=== PATIENT | male | born 1935 | race Caucasian/White ===

== ENCOUNTER 2016-07-23 14:11 | Inpatient (IN) | payer OTHER ==
[~2016-07-23] VITALS: Ht 177.8 cm; Wt 92.5 kg
--- NOTE | ~2016-07-23 | D ---
[facility] [place] [address] DISCHARGE SUMMARY Name: CHERYL VILLALTA Room #: 460-P [facility] IN M.R.#: [id number] Admission: 07/23/16 Attend Phys: Rosanna Melo Discharge: 07/27/16 Date of : 34 Report #: [id number] THIS REPORT FOR: //name// CC: Phill Monaco DATE OF SERVICE: 07/27/2016 FINAL DIAGNOSES: 1. Clostridium difficile colitis. 2. Peripheral artery disease. 3. Chronic kidney disease, stage 3. HOSPITAL COURSE: The patient was admitted with nausea, vomiting and diarrhea. Basic studies were unremarkable. His creatinine was essentially near baseline around 1.6. The lab data were unremarkable. Dr. Hester saw him in consultation. Stool studies were obtained and they were positive for Clostridium difficile. He was started on vancomycin. His nausea resolved. His stools were forming and he is eating a regular diet. PHYSICAL EXAMINATION: On the day of discharge: GENERAL: He is awake and alert with stable vital signs. LUNGS: Clear. HEART: Regular. ABDOMEN: Soft, normoactive bowel sounds, no tenderness. EXTREMITIES: Showed no edema. DISPOSITION: He will be discharged to home with diet and activity as tolerated, resume all home medications; he will take vancomycin 125 mg q.i.d. for 2 weeks. Follow up with Dr. Monaco in [address] Hester in 4 weeks to consider endoscopy at that point. <ELECTRONICALLY SIGNED> By: Aris De Santiago MD 07/28/16 1240 0845 1952 Aris De Santiago MD /nt
--- NOTE | ~2016-07-23 | EKG ---
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 : 1935 Requested By: Phill Monaco Order Number: [id number] MD: Karlo Hunter Measurements Intervals [place] Rate: 64 P: -11 VT: 168 QRS: -43 QRSD: 148 T: 5 QT: 437 QTc: 451 Interpretive Statements Sinus rhythm RBBB and LAFB Compared to ECG 04/04/2016 10:40:31 Left anterior fascicular block now present Electronically Signed On 07-24-2016 7:34:52 CDT by Karlo Hunter [email or web address] <ELECTRONICALLY SIGNED> By: Karlo Hunter MD, [facility] 07/24/16 0734 183 183 Karlo Hunter MD, [facility] /EPI
--- NOTE | ~2016-07-23 | H ---
[facility] [place] [address] HISTORY AND PHYSICAL Name: CHERYL VILLALTA Room #: 460-P ADM IN M.R.#: [id number] Admission: 07/23/16 Attend Phys: Rosanna Melo Discharge: Date of : 34 Report #: [id number] THIS REPORT FOR: //name// CC: Phill Monaco DATE OF SERVICE: 07/23/2016 CHIEF COMPLAINT: Chronic diarrhea, nausea and vomiting. HISTORY OF PRESENT ILLNESS: The patient is an 81-year-old gentleman who was admitted to the hospital from the office for evaluation of nausea and vomiting. He has a longstanding history of chronic diarrhea that he controls with cholestyramine and Lomotil on a daily basis. It developed after his colonoscopy several years ago. He said generally that has been under control, but in the last 2 days, he thought he has had a little more diarrhea than usual. Then on Thursday of this week, he began feeling ill or "sick" at work and was taken home by his family. Upon arriving home, he immediately vomited just bile contents and he said there was no bleeding. Since then, he has felt weak and just some abdominal discomfort. He really has not been eating and drinking in the last 2 days and therefore was admitted yesterday from the office. PAST MEDICAL HISTORY: Diabetes type 2, GERD, peripheral artery disease with prior stents, diverticulosis, obstructive sleep apnea, coronary artery disease with prior cardiac stents. Apparently, he had a colonoscopy and EGD and CT of the abdomen in 2013. SURGICAL HISTORY: He has had prostatectomy, cholecystectomy, abdominal aortic aneurysm repair April of this year. FAMILY HISTORY: Unknown. SOCIAL HISTORY: He is a remote smoker, none currently. ALLERGIES: ACTOS. MEDICATIONS: Cholestyramine 1 packet t.i.d., vitamins, probiotic, Plavix 75 mg, fish oil, fenofibrate 160 mg, Carafate 1 gram b.i.d., metoprolol 50 mg half tab, aspirin 81 mg, Lomotil 2 tabs as needed q.i.d., lovastatin 40 mg, folic acid 1 mg, glimepiride 2 mg. REVIEW OF SYSTEMS: He denies headache, chest pain, shortness of breath, myalgias, arthralgias, syncope or fall. PHYSICAL EXAMINATION: VITAL SIGNS: Temperature 36.7, pulse 58, respirations 18, blood pressure 150/80. [address] [address] HISTORY AND PHYSICAL Name: CHERYL VILLALTA Room #: 460-P [facility] IN [facility].#: [id number] Admission: 07/23/16 Attend Phys: Rosanna Melo Discharge: Date of : 34 Report #: [id number] GENERAL: He is awake and alert, in no distress. HEAD AND NECK: Unremarkable. LUNGS: Clear. HEART: Regular. ABDOMEN: Soft, normoactive bowel sounds, no palpable masses. No rebound or guarding. EXTREMITIES: No cyanosis, clubbing or edema. NEUROLOGIC: Motor strength 5/5 throughout. LABORATORY DATA: CBC was unremarkable. Creatinine 1.6. LFT is normal. KUB is normal. Blood and urine cultures are negative overnight. ASSESSMENT: 1. Abdominal pain. 2. Nausea, vomiting. 3. Chronic diarrhea. 4. Diabetes type 2. 5. Coronary artery disease. 6. Peripheral artery disease. PLAN: I asked Dr. Teran or his team to assess him for an opinion on whether he needs a repeat endoscopies at this point given his symptoms. I will hold his Plavix for now in case a procedure is indicated. We will repeat his lab work in regards to his renal function. <ELECTRONICALLY SIGNED> By: Aris De Santiago MD 07/24/16 1558 1250 1437 Aris De Santiago MD /nt
[~2016-07-23 14:11] MED LIST: ADULT LOW DOSE81 MG PO; AMARYL; AMARYL2 MG PO; ASPIR 8181 MG PO; ASPIRIN; Aspirin; B1 PO; B12 PO; B6 PO; CARAFATE 1 GM TA1 G1 PO; CHOLESTYRAMINE P4 GM PO; CLOPIDOGREL PO; FENOFIBRATE160 MG PO; FISH OIL 1,001000 M2 PO; FOLIC ACID; FOLIC ACID1 MG PO; HYDROCODONE-AP1 EAC6 PO; LISINOPRIL10 MG PO; LOPERAMIDE 2 MG2 M1 PO; LOPRESSOR; LOPRESSOR50 PO; LOVASTAT40 PO; LOVASTATIN; LOVASTATIN 20 M20 MG PO; NORCO 5-325 TA1 EACH PO; OMEPRAZOLE20 MG PO; PLAVIX; PLAVIX 75 MG TA75 M1 PO; PRESERVISION A1 EAC1; PRESERVISION T1 EACH PO; PREVALITE PACKE1 PKT PG; PRILOSEC; PRILOSEC20 MG PO; PROBIOTIC1 EAC2 PO; RANITIDINE HCL300 MG PO; REGLAN 10 MG TA10 MG PO; TOPROL XL100 MG PO; TOPROL XL25 MG PO; TOPROL XL50 MG PO; TRIAMTERENE-HC1 EAC1 PO; TRICOR; Tricor PO; VANCOCIN 125 M125 M1 PO; VITAMIN B-12 IM
[2016-07-23 15:44] VITALS: BP 149/64
[2016-07-23] MEDS ORDERED: FISH OIL 1,001000 M2 PO (15:47)
[2016-07-23 19:18] LABS: ABSOLUTE NEUTROPHILS 3.5 thou/uL (1.4-8.2); BASOPHILS 0.7 % (0.0-2.0); EOSINOPHILS 5.8 % (0.0-3.0); HEMATOCRIT 34.5 % (42.0-52.0); HEMOGLOBIN 11.9 gm/dL (14.0-18.0); LYMPHOCYTES 28.6 % (24.0-44.0); MCH 32.9 pg (26.0-34.0); MCHC 34.4 g/dL (28.0-37.0); MCV 95.9 fL (80.0-100.0); MONOCYTES 10.6 % (1.0-8.0); PLATELET COUNT 176 thou/uL (150-400); POLYS 54.3 % (36.0-66.0); RDW 13.8 % (10.5-14.5); WBC 6.4 thou/uL (4.0-11.0)
[2016-07-23 19:22] LABS: MANUAL DIFF NO
[2016-07-23 19:40] LABS: ALBUMIN 3.4 g/dL (3.4-5.0); CALCIUM 8.5 mg/dL (8.5-10.1); CREATININE 1.6 mg/dL (0.7-1.3); POTASSIUM 3.8 mmol/L (3.5-5.1); TOTAL BILIRUBIN 0.3 mg/dL (<0.1-1.0); TOTAL PROTEIN 6.7 g/dL (6.4-8.2)
[2016-07-23 19:48] VITALS: BP 176/79
[2016-07-23 23:37] VITALS: BP 145/68
[2016-07-24 03:15] VITALS: BP 148/70
[2016-07-24 07:23] VITALS: BP 158/80
[2016-07-24 17:18] LABS: HEMATOCRIT 35.2 % (42.0-52.0); HEMOGLOBIN 12.2 gm/dL (14.0-18.0); MCH 33.1 pg (26.0-34.0); MCHC 34.6 g/dL (28.0-37.0); MCV 95.9 fL (80.0-100.0); RBC 3.67 mil/uL (4.50-6.00); RDW 13.9 % (10.5-14.5); WBC 8.2 thou/uL (4.0-11.0)
[2016-07-24 17:36] LABS: ALBUMIN 3.3 g/dL (3.4-5.0); CALCIUM 8.3 mg/dL (8.5-10.1); CREATININE 1.6 mg/dL (0.7-1.3); POTASSIUM 4.6 mmol/L (3.5-5.1); TOTAL BILIRUBIN 0.4 mg/dL (<0.1-1.0); TOTAL PROTEIN 6.7 g/dL (6.4-8.2)
[2016-07-24 19:35] VITALS: BP 158/70
[2016-07-25 03:48] VITALS: BP 150/77
[2016-07-25 09:10] LABS: HEMATOCRIT 37.3 % (42.0-52.0); HEMOGLOBIN 12.7 gm/dL (14.0-18.0); MCH 32.5 pg (26.0-34.0); MCV 95.7 fL (80.0-100.0); RBC 3.9 mil/uL (4.50-6.00); RDW 13.8 % (10.5-14.5); WBC 6.8 thou/uL (4.0-11.0)
[2016-07-25 09:17] LABS: CALCIUM 8.7 mg/dL (8.5-10.1); CREATININE 1.6 mg/dL (0.7-1.3); POTASSIUM 4.3 mmol/L (3.5-5.1)
[2016-07-25 12:10] VITALS: BP 154/75
[2016-07-25 12:36] VITALS: BP 153/77
[2016-07-25 15:54] VITALS: BP 153/77
[2016-07-25 21:34] VITALS: BP 140/61
[2016-07-26 03:58] VITALS: BP 131/60
[2016-07-26 07:20] VITALS: BP 156/86
[2016-07-26 11:28] VITALS: BP 158/79
[2016-07-26 15:35] VITALS: BP 140/80
[2016-07-26 20:07] VITALS: BP 154/83
[2016-07-27 03:39] VITALS: BP 155/89
[2016-07-27 07:40] VITALS: BP 133/62
[2016-07-27 07:56] LABS: CALCIUM 8.8 mg/dL (8.5-10.1); CREATININE 1.6 mg/dL (0.7-1.3); POTASSIUM 4.2 mmol/L (3.5-5.1)
[2016-07-27] MEDS ORDERED: VANCOMYCIN100 MG/ML PO (08:06)
== END 2016-07-27 10:41 | disposition home health service (06) | DRG 371 ==
LOC: 4W 14:11
PROVIDERS: Internal Medicine; Internal Medicine Geriatric Medicine; Nurse Practitioner Adult Health
DX: A04.7 Enterocolitis due to Clostridium difficile (principal); E43 Unspecified severe protein-calorie malnutrition; E11.51 Type 2 diabetes mellitus with diabetic peripheral angiopathy without gangrene; K57.90 Diverticulosis of intestine, part unspecified, without perforation or abscess without bleeding; G47.33 Obstructive sleep apnea (adult) (pediatric); I25.10 Atherosclerotic heart disease of native coronary artery without angina pectoris; E11.22 Type 2 diabetes mellitus with diabetic chronic kidney disease; N18.3 Chronic kidney disease, stage 3 (moderate); G89.29 Other chronic pain; M54.5 Low back pain; Z85.46 Personal history of malignant neoplasm of prostate; Z95.5 Presence of coronary angioplasty implant and graft; Z80.0 Family history of malignant neoplasm of digestive organs; Z90.49 Acquired absence of other specified parts of digestive tract; Z88.8 Allergy status to other drugs, medicaments and biological substances; Z79.899 Other long term (current) drug therapy
CPT/HCPCS: 10045; 20050

== ENCOUNTER 2016-07-29 18:05 | Emergency (ER) | payer OTHER ==
[~2016-07-29] VITALS: Ht 177.8 cm; Wt 88.9 kg
[~2016-07-29 18:05] MED LIST changes: +VANCOMYCIN100 MG/ML PO
[2016-07-29 19:52] LABS: URINE BILIRUBIN NEGATIVE (Negative); URINE BLOOD TRACE (Negative); URINE COLOR YELLOW; URINE GLUCOSE-RANDOM* NEGATIVE (Negative); URINE KETONES NEGATIVE (Negative); URINE LEUKOCYTES-REFLEX NEGATIVE (Negative); URINE PROTEIN (DIPSTICK) 2+ (Negative); URINE SPECIFIC GRAVITY 1.025 (1.003-1.035); URINE UROBILINOGEN 0.2 E.U./dl (0.2-1.0)
[2016-07-29 19:52] LABS: ABSOLUTE NEUTROPHILS 4.5 thou/uL (1.4-8.2); BASOPHILS 0.6 % (0.0-2.0); EOSINOPHILS 8.2 % (0.0-3.0); HEMATOCRIT 34.6 % (42.0-52.0); HEMOGLOBIN 11.9 gm/dL (14.0-18.0); LYMPHOCYTES 21.5 % (24.0-44.0); MANUAL DIFF NO; MCH 32.8 pg (26.0-34.0); MCHC 34.5 g/dL (28.0-37.0); MCV 95.1 fL (80.0-100.0); MONOCYTES 9.5 % (1.0-8.0); PLATELET COUNT 196 thou/uL (150-400); POLYS 60.2 % (36.0-66.0); RBC 3.64 mil/uL (4.50-6.00); WBC 7.5 thou/uL (4.0-11.0)
[2016-07-29 20:06] LABS: CASTS None Seen /LPF (None Seen); CRYSTALS None Seen /LPF (None Seen); SQUAMOUS None Seen /LPF (0-3); URINE RBC None Seen /HPF (0-2); URINE WBC-REFLEX None Seen /HPF (0-5)
[2016-07-29 20:12] LABS: ALBUMIN 3.3 g/dL (3.4-5.0); CALCIUM 8.9 mg/dL (8.5-10.1); CREATININE 1.8 mg/dL (0.7-1.3); POTASSIUM 4.3 mmol/L (3.5-5.1); TOTAL BILIRUBIN 0.2 mg/dL (<0.1-1.0); TOTAL PROTEIN 6.7 g/dL (6.4-8.2)
[2016-07-29] MEDS ORDERED: NORCO 5-325 TA1 EACH PO (21:04)
[2016-07-29] MEDS ORDERED: BENTYL 20 MG TA20 M1 PO (21:04)
== END 2016-07-29 21:15 | disposition home or self-care (01) ==
LOC: ER 18:05
PROVIDERS: Emergency Medicine
DX: R10.32 Left lower quadrant pain (principal); M19.90 Unspecified osteoarthritis, unspecified site; K21.9 Gastro-esophageal reflux disease without esophagitis; I10 Essential (primary) hypertension; E11.9 Type 2 diabetes mellitus without complications; I25.10 Atherosclerotic heart disease of native coronary artery without angina pectoris; Z85.46 Personal history of malignant neoplasm of prostate; Z86.73 Personal history of transient ischemic attack (TIA), and cerebral infarction without residual deficits; Z90.89 Acquired absence of other organs; Z88.8 Allergy status to other drugs, medicaments and biological substances; Z87.891 Personal history of nicotine dependence

== ENCOUNTER 2016-12-19 17:46 | Inpatient (IN) | payer OTHER ==
[~2016-12-19] VITALS: Ht 157.5 cm; Wt 95.3 kg
--- NOTE | ~2016-12-19 | EKG ---
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
--- NOTE | ~2016-12-19 | H ---
[facility] [place] [address] HISTORY AND PHYSICAL Name: CHERYL VILLALTA Room #: 431-P ADM IN M.R.#: [id number] Admission: 12/19/16 Attend Phys: Rosanna Melo Discharge: Date of : 34 Report #: [id number] THIS REPORT FOR: //name// CC: Phill Monaco DATE OF SERVICE: 12/19/2016 HISTORY OF PRESENT ILLNESS: This is an 81-year-old male well known to our service with a background history of severe peripheral vascular disease, ischemic heart disease, cerebrovascular disease, who apparently was moving some banana trees with the help of his grandson and he relates that he was straining to do this and began to get mentally confused. His certainly noted the same thing and he was brought to the Emergency Room and subsequently admitted. There were no specific findings on initial evaluation through the emergency room, but certainly a vascular event was considered. PAST MEDICAL HISTORY: Noteworthy for those findings in the HPI. He has had an aortic stent graft. He has had angioplasty coronary alcantar. He has non-insulin dependent diabetes, hypertension, gastroesophageal reflux, history of prostate cancer, status post prostatectomy underlying sleep apnea with CPAP use. He has decreased vision. Previous cholecystectomy. MEDICATIONS: Glimepiride, aspirin, metoprolol, fish oil, folic acid, omeprazole, lovastatin, fenofibrate, Plavix, cholestyramine. ALLERGIES: ACTOS. FAMILY HISTORY: Noncontributory. SOCIAL HISTORY: He lives with his , still is active, but is really limited by his visual decline. REVIEW OF SYSTEMS: No specific cardiopulmonary, GI or complaints at this time. PHYSICAL EXAMINATION: GENERAL: Shows him sitting up in a chair. He seems oriented to me at this time. He is drinking a cup of coffee without any difficulty. VITAL SIGNS: Stable. There were a couple of mildly elevated BPs. HEENT: Otherwise negative. NECK: Supple without thyromegaly or adenopathy. CHEST: Clear. CARDIOVASCULAR: Shows a regular rhythm without murmur. ABDOMEN: Soft and nontender. EXTREMITIES: Showed no cyanosis, clubbing or edema. NEUROLOGIC: Shows him to be awake, alert and really able to answer all my [facility] [address] [place] [address] HISTORY AND PHYSICAL Name: CHERYL VILLALTA Room #: 431-P [facility] IN [facility].#: [id number] Admission: 12/19/16 Attend Phys: Rosanna Melo Discharge: Date of : 34 Report #: [id number] questions, did not seem disoriented to me. ASSESSMENT: This is a patient well known to my service with a confusion episode that appears to be better and I think this was vascular in origin and it may have been contributing to lifting where he may have compromised some of his cerebral circulation. Certainly initial evaluation is negative for anything acute. PLAN: Observation for 24 hours. MR scanning to make sure this was not an acute stroke, but even if it is, it is going to be a lacunar situation I think, which would probably not change the management. <ELECTRONICALLY SIGNED> By: Phill Monaco MD 12/21/16 0927 1022 1050 Phill Monaco MD /[facility]
--- NOTE | ~2016-12-19 | EEG ---
[facility] [place] [address] ELECTROENCEPHALOGRAM Name: CHERYL VILLALTA Room #: 431-P [facility] IN M.R.#: [id number] Admission: 12/19/16 Attend Phys: Phill Monaco, Discharge: 12/21/16 Date of : 34 Report #: [id number] THIS REPORT FOR: //name// CC: Phill Monaco DATE OF SERVICE: 12/20/2016 This patient is being evaluated for an episode of altered mental status. EEG was done by placing the electrodes by standard 10-20 system of electrode placement. Both referential and sequential montages were used for recording. Background activity in this patient's EEG is about 9 Hz and 30 microvolts. It is a symmetrical activity. Photic stimulation is unremarkable. This patient became drowsy and that is associated with bilateral slowing and vertex sharp waves on both sides. Throughout the record, no active epileptiform activity was noticed. IMPRESSION: This patient's EEG is unremarkable. Thank you very much for this referral. <ELECTRONICALLY SIGNED> By: Philippe Holland MD 12/23/16 0908 1454 193 Philippe Holland MD /nt
[~2016-12-19 17:46] MED LIST changes: +BENTYL 20 MG TA20 M1 PO; -LOPRESSOR50 PO
[2016-12-19 17:49] VITALS: BP 157/78
[2016-12-19 18:26] LABS: POC CA IONIZED 4.7 mg/dL (4.5-5.3); POC CREATININE 1.9 mg/dL (0.6-1.3); POC HEMOGLOBIN 13.3 g/dL (14.0-18.0)
[2016-12-19 18:32] LABS: HEMATOCRIT 37.9 % (42.0-52.0); HEMOGLOBIN 13.1 gm/dL (14.0-18.0); MCH 32.8 pg (26.0-34.0); MCHC 34.5 g/dL (28.0-37.0); MCV 94.9 fL (80.0-100.0); RBC 3.99 mil/uL (4.50-6.00); RDW 14.2 % (10.5-14.5); WBC 8.5 thou/uL (4.0-11.0)
[2016-12-19] MEDS ORDERED: OMEPRAZOLE 20 M20 M1 PO (18:35)
[2016-12-19] MEDS ORDERED: PRESERVISION A1 EAC2 PO (18:36)
[2016-12-19 18:42] LABS: ANION GAP 9 mmol/L (7-16); BUN 22 mg/dL (7-18); CALCIUM 9.2 mg/dL (8.5-10.1); CHLORIDE 104 mmol/L (98-107); CO2 26 mmol/L (21-32); CREATININE 1.9 mg/dL (0.7-1.3); GLUCOSE 96 mg/dL (74-106); POTASSIUM 3.9 mmol/L (3.5-5.1); SODIUM 139 mmol/L (136-145)
[2016-12-19 18:44] LABS: APTT 22.1 Seconds (24.5-32.8); PROTIME 10.6 Seconds (9.3-11.4)
[2016-12-19 18:51] LABS: TROPONIN-I < 0.04 ng/mL (<0.04-0.07)
[2016-12-19 19:51] LABS: CHOLESTEROL 155 mg/dL (<200); HDL CHOLESTEROL 39 mg/dL (>40); LDL CHOLESTEROL 69 mg/dL (<100); TRIGLYCERIDE 236 mg/dL (<150); VLDL 47 mg/dL (<40)
[2016-12-19 22:10] VITALS: BP 169/85
[2016-12-19 22:35] VITALS: BP 188/96
[2016-12-20 03:14] VITALS: BP 149/83
[2016-12-20 08:00] VITALS: BP 164/98
[2016-12-20 15:44] VITALS: BP 139/76
[2016-12-20 20:00] VITALS: BP 123/57
[2016-12-21 04:30] VITALS: BP 174/88
[2016-12-21 08:00] VITALS: BP 174/78
[2016-12-21 10:09] VITALS: BP 174/78
== END 2016-12-21 10:30 | disposition home or self-care (01) | DRG 66 ==
LOC: ER 17:46 → EROBS 20:31 → 4E 22:13
PROVIDERS: Emergency Medicine
DX: I63.9 Cerebral infarction, unspecified (principal); K21.9 Gastro-esophageal reflux disease without esophagitis; I25.10 Atherosclerotic heart disease of native coronary artery without angina pectoris; E11.51 Type 2 diabetes mellitus with diabetic peripheral angiopathy without gangrene; I10 Essential (primary) hypertension; H35.30 Unspecified macular degeneration; M19.90 Unspecified osteoarthritis, unspecified site; Z95.5 Presence of coronary angioplasty implant and graft; Z86.73 Personal history of transient ischemic attack (TIA), and cerebral infarction without residual deficits; Z90.49 Acquired absence of other specified parts of digestive tract; Z98.41 Cataract extraction status, right eye; Z85.46 Personal history of malignant neoplasm of prostate; Z79.899 Other long term (current) drug therapy; Z88.8 Allergy status to other drugs, medicaments and biological substances; Z87.891 Personal history of nicotine dependence; Z23 Encounter for immunization; I25.2 Old myocardial infarction
CPT/HCPCS: 10183

== ENCOUNTER → 2017-04-27 | Outpatient (CLI) | payer OTHER ==
[~2017-04-27] MED LIST changes: +NAMENDA 5 MG TAB5 M1 PO; +OMEPRAZOLE 20 M20 M1 PO; +PRESERVISION A1 EAC2 PO; +XARELTO15 MG PO
== END ==
LOC: CAT 08:27
PROVIDERS: Internal Medicine
DX: I71.4 Abdominal aortic aneurysm, without rupture (principal); N28.1 Cyst of kidney, acquired; Z95.828 Presence of other vascular implants and grafts

== ENCOUNTER 2017-05-21 12:57 | Inpatient (IN) | payer OTHER ==
[~2017-05-21] VITALS: Ht 175.3 cm; Wt 93.0 kg
--- NOTE | ~2017-05-21 | H ---
[facility] [place] [address] HISTORY AND PHYSICAL Name: CHERYL VILLALTA Room #: 445-P ADM IN M.R.#: [id number] Admission: 05/21/17 Attend Phys: Rosanna Melo Discharge: Date of : 34 Report #: [id number] THIS REPORT FOR: //name// CC: Phill Monaco DATE OF SERVICE: 05/21/2017 CHIEF COMPLAINT: Confusion. HISTORY OF PRESENT ILLNESS: The patient is an 82-year-old gentleman who was admitted from home with confusion. All the history is obtained from his as he really cannot give any details. He is alert and pleasantly confused, but really is unaware as to his surroundings and does not recognize myself or Dr. Garcias who stopped in to see him as well. Generally, his said in November he suffered a TIA and he has had a little bit of cognitive or memory loss since then. However, he has been functional and has been able to manage on his own. It sounds like he had outpatient neuropsych testing with Dr. Clemente sometime in the fall. I do not have results of that testing. However, his said in the last week he has been more confused. He is not oriented to his home surroundings. She has been afraid to leave him alone as he has seemed even more confused and she noted this morning, he awoke and thought he was in a hotel not aware as to being in the hospital. PAST MEDICAL HISTORY: Hypertension, diabetes type 2, chronic kidney disease stage 4 with creatinine around 2, history of TIA. Apparently has a abdominal aortic aneurysm that is stable. There has been a recent diagnosis of incidental finding of PE on CT. PAST SURGICAL HISTORY: Unknown. FAMILY HISTORY: Unknown. SOCIAL HISTORY: He is , lives with his . No chronic alcohol or tobacco use. ALLERGIES: ACTOS. MEDICATIONS: Xarelto, irbesartan, hydrochlorothiazide, Prevalite, fenofibrate, Mevacor, fish oil, Prilosec, glimepiride and folic acid. He recently stopped aspirin, Plavix, and metoprolol. REVIEW OF SYSTEMS: He denies headache, chest pain, shortness of breath, abdominal pain, nausea, vomiting, diarrhea, constipation, dysuria, syncope. OBJECTIVE: VITAL SIGNS: Temperature 37.2, pulse 67, respirations 20, blood pressure [address] [address] HISTORY AND PHYSICAL Name: CHERYL VILLALTA Room #: 445-P [facility] IN .R.#: [id number] Admission: 05/21/17 Attend Phys: Rosanna Melo Discharge: Date of : 34 Report #: [id number] 124/74, O2 sat 97% on room air. GENERAL: He is awake and alert, in no distress. HEAD AND NECK: Unremarkable. LUNGS: Clear. HEART: Regular. ABDOMEN: Soft, normoactive bowel sounds. EXTREMITIES: No edema. NEUROLOGIC: Global strength intact. He is walking on his own. He has facial symmetry and clear speech. LABORATORY DATA: Lab and CT reviewed. ASSESSMENT: 1. Altered mental status. 2. Cognitive impairment. 3. Cerebrovascular disease with prior history of transient ischemic attack and evidence of microvascular disease on CT. 4. Chronic kidney disease stage 4. 5. Hypertension. 6. Diabetes type 2. 7. Recent incidental pulmonary embolism. 8. Recent anticoagulation with Xarelto. PLAN: An MRI of the brain will be obtained. I will ask the Neurology service to see him as well. Wonder if there has been a new vascular event, rule out infection as well. I have discussed his recent history and findings of incidental PE and a stable aneurysm with Dr. Garcias. <ELECTRONICALLY SIGNED> By: Aris De Santiago MD 05/22/17 1306 0950 1026 Aris De Santiago MD /nt
--- NOTE | ~2017-05-21 | EKG ---
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: STEVE : 1935 Requested By: Ahmet Pimentel Order Number: [id number] MD: Karlo Hunter Measurements Intervals [place] Rate: 103 P: 21 ME: 133 QRS: -57 QRSD: 141 T: 25 QT: 373 QTc: 489 Interpretive Statements Sinus tachycardia RBBB and LAFB Compared to ECG 12/19/2016 18:17:33 Sinus rhythm no longer present Electronically Signed On 05-25-2017 8:40:14 MANAGER OF TAX by Karlo Hunter [email or web address] <ELECTRONICALLY SIGNED> By: Karlo Hunter MD, [facility] 05/25/17 0840 1527 26 Karlo Hunter MD, [facility] /EPI
--- NOTE | ~2017-05-21 | D ---
[facility] [place] [address] DISCHARGE SUMMARY Name: CHERYL VILLALTA Room #: 445-P [facility] IN M.R.#: [id number] Admission: 05/21/17 Attend Phys: Rosanna Melo Discharge: 05/25/17 Date of : 34 Report #: [id number] THIS REPORT FOR: //name// CC: Phill Monaco DATE OF SERVICE: 05/25/2017 FINAL DIAGNOSES: 1. Senile dementia. 2. Cerebrovascular disease. 3. Hypertension. 4. Diabetes type 2. 5. Chronic kidney disease, stage 4. HOSPITAL COURSE: The patient was admitted from home with confusion. Workup was negative for infection or acute changes in baseline labs. His usual creatinine is around 1.8-2 at the office, which was very similar here. I spoke to Dr. Garcias about his case where he had recently been diagnosed with an incidental finding of PE on outpatient workup and he was on Xarelto. This was dose adjusted for his renal function. CT and MRI of the brain revealed microvascular changes and a prior old stroke, but no acute process. Dr. Holland saw him in consultation. EEG was negative. Ultimately settled on a diagnosis of senile dementia, likely related to vascular process. PHYSICAL EXAMINATION: GENERAL: On the day of discharge, he was awake and alert. VITAL SIGNS: Stable. His is at the bedside, we reviewed the findings. LUNGS: Clear. HEART: Regular. ABDOMEN: Soft, normoactive bowel sounds. EXTREMITIES: No edema. DISPOSITION: He will be discharged to home with diabetic diet, activity as tolerated. His family has made arrangements to have a supervised care at home. He is instructed no driving. Follow up with Dr. Garcias as directed and with Dr. Monaco within 2 weeks. <ELECTRONICALLY SIGNED> By: Aris De Santiago MD 05/26/17 1521 1347 1630 Aris De Santiago MD /nt
--- NOTE | ~2017-05-21 | EEG ---
[facility] [place] [address] ELECTROENCEPHALOGRAM Name: CHERYL VILLALTA Room #: 445-P [facility] IN M.R.#: [id number] Admission: 05/21/17 Attend Phys: Phill Monaco, Discharge: 05/25/17 Date of : 34 Report #: [id number] THIS REPORT FOR: //name// CC: Phill Monaco DATE OF SERVICE: 05/23/2017 This patient is being evaluated for memory disturbances and altered mental status. EEG was done by placing the electrodes by standard 10-20 system of electrode placement. Both referential and sequential montages were used for recording. Background activity in this patient's EEG is about 8-9 Hz and 30 microvolts. The patient went to sleep that is associated with bilateral slowing, vertex sharp waves and sleep spindles. Photic stimulation is unremarkable. Throughout the record, no active epileptiform activity was noticed. IMPRESSION: This patient's EEG demonstrate moderate amount of slowing on both sides. That is a nonspecific finding, which can occur with dementia, encephalopathy and effect of psychotropic medication, but no finding of any epilepsy was noticed. Thank you very much for this referral. <ELECTRONICALLY SIGNED> By: Philippe Holland MD 05/30/17 1552 1235 1722 Philippe Holland MD /nt
--- NOTE | ~2017-05-21 | HC ---
[facility] [place] [address] CONSULTATION Name: CHERYL VILLALTA Room #: 445-P [facility] IN M.R.#: [id number] Admission: 05/21/17 Attend Phys: Rosanna Melo Discharge: 05/25/17 Date of : 34 Report #: [id number] THIS REPORT FOR: //name// CC: Phill Monaco DATE OF SERVICE: 05/22/2017 HISTORY OF PRESENT ILLNESS: This is an 82-year-old male patient who is unable to provide any reliable history. The patient does appear to have short term memory. The patient's record was reviewed. It looks like this patient is having moderately severe memory problem for several months and it has recently become worse. It is not associated with any other focal neurological deficit. He has become confused and that is the reason he was brought here. does not know anything, which makes the confusion better or worse. REVIEW OF SYSTEMS: Positive for hypertension, diabetes and chronic kidney disease. Apparently, he has a history of TIA. He has a history of abdominal aneurysm. He has been seen by cinder crane operator during this admission. He has a history of PE and he was on Xarelto. He also has a history peripheral artery disease as well as carotid stenosis. He has history of dyslipidemia. His BUN and creatinine is abnormal here. It looks like his vision and hearing is at his baseline. He is not complaining of any musculoskeletal, constitutional, dermatological, hematological, psychiatric, throat, allergic symptom associated with present symptomatology. PAST MEDICAL HISTORY: Indicated he had a history of TIA. He also has a history of macular degeneration. FAMILY HISTORY: Negative for early age stroke. SOCIAL HISTORY: He is but I was not able to reach the , but I will try to talk to her. PHYSICAL EXAMINATION: NEUROLOGICAL: Indicates he is alert. He is responsive. He does not know what month it is. He does not know what day it is. His speech looks intact but his memory and fund of knowledge is markedly diminished. His cranial nerve examination 2 through 12 is unremarkable. Neuromuscular examination, the best it could be carried out, is symmetrical for strength, sensation, reflexes and tones. There is no carotid bruit in this patient. He does not appear to have Spinal. He does not appear to have any cerebellar sign. He could not cooperate with the fundus examination. GENERAL: He is a very well developed individual who does not have any dysmorphic features of eyes, ears and face. HEENT: His vision and hearing looks adequate. CARDIAC: Examination is unremarkable. [facility] [address] [place] [address] CONSULTATION Name: CHERYL VILLALTA Room #: 445-P [facility]#: [id number] Admission: 05/21/17 Attend Phys: Rosanna Melo Discharge: 05/25/17 Date of : 34 Report #: [id number] RESPIRATORY: He does not have any rhonchi on either side and his respiratory system looks unremarkable. VITAL SIGNS: His blood pressure is 160/83, respirations 18, pulse is 72 and temperature is 97.6. LABORATORY DATA: Indicates creatinine of 2.1. PTT is 22.1. He did have a TSH that was normal. His vitamin B12 was done in 2009 and it was 217. His sed rate was 27. RADIOLOGICAL DATA: His present and old records were reviewed. It looks like he was here with a basal ganglion infarct in November and at that time, his carotid did not show any significant stenosis. I do not see any study of intracranial circulation that time. He had numerous CAT scan and carotid Doppler before. IMPRESSION: 1. Dementia. 2. 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 3. Somewhat low vitamin B12 many years ago, which needs to be repeated. 4. Present aggravation may be because of some systemic problem or some systemic infection, looks like he is not having any urinary tract infection to aggravate these problems but a lot of time infection is the most common aggravating factor. RECOMMENDATIONS: 1. His MRI is already done that showed no acute stroke. 2. We will repeat the vitamin B12 level. 3. We will check an EEG. 4. Check for any systemic infection or anything, which can aggravate the patient's symptom. 5. We will discuss with the and yourself and reevaluate the situation after this workup is done. Thank you very much for this referral. <ELECTRONICALLY SIGNED> By: Philippe Holland MD 05/30/17 1549 [id number] 2316 Philippe Holland MD /nt
[~2017-05-21 12:57] MED LIST changes: -NAMENDA 5 MG TAB5 M1 PO; -XARELTO15 MG PO
[2017-05-21 13:59] VITALS: BP 143/73
[2017-05-21 15:35] LABS: ABSOLUTE NEUTROPHILS 4.6 thou/uL (1.4-8.2); BASOPHILS 0.8 % (0.0-2.0); HEMATOCRIT 35.3 % (42.0-52.0); LYMPHOCYTES 21.4 % (24.0-44.0); MCH 32.5 pg (26.0-34.0); MCHC 34.1 g/dL (28.0-37.0); MCV 95.4 fL (80.0-100.0); MONOCYTES 8.7 % (1.0-8.0); PLATELET COUNT 209 thou/uL (150-400); POLYS 62.1 % (36.0-66.0); RDW 13.6 % (10.5-14.5); WBC 7.5 thou/uL (4.0-11.0)
[2017-05-21 15:47] LABS: ALBUMIN 3.3 g/dL (3.4-5.0); CALCIUM 8.8 mg/dL (8.5-10.1); CREATININE 2.1 mg/dL (0.7-1.3); POTASSIUM 4.4 mmol/L (3.5-5.1); TOTAL BILIRUBIN 0.4 mg/dL (<0.1-1.0); TOTAL PROTEIN 6.2 g/dL (6.4-8.2)
[2017-05-21 16:33] VITALS: BP 143/66
[2017-05-21 19:16] VITALS: BP 156/80
[2017-05-22 03:22] VITALS: BP 141/87
[2017-05-22 08:00] VITALS: BP 124/74
[2017-05-22 12:30] LABS: URINE BILIRUBIN NEGATIVE (Negative); URINE BLOOD NEGATIVE (Negative); URINE CLARITY CLEAR; URINE COLOR YELLOW; URINE GLUCOSE-RANDOM* 1+ (Negative); URINE KETONES NEGATIVE (Negative); URINE LEUKOCYTES-REFLEX NEGATIVE (Negative); URINE NITRITE-REFLEX NEGATIVE (Negative); URINE PROTEIN (DIPSTICK) 2+ (Negative); URINE UROBILINOGEN 0.2 E.U./dl (0.2-1.0)
[2017-05-22 12:41] LABS: BACTERIA-REFLEX 1-9 Few /HPF (None Seen); CASTS None Seen /LPF (None Seen); CRYSTALS None Seen /LPF (None Seen); SQUAMOUS 0-3 Few /LPF (0-3); URINE RBC None Seen /HPF (0-2); URINE WBC-REFLEX None Seen /HPF (0-5)
[2017-05-22 16:49] VITALS: BP 160/83
[2017-05-22 19:20] VITALS: BP 146/74
[2017-05-23 04:33] VITALS: BP 145/79
[2017-05-23 07:20] VITALS: BP 159/93
[2017-05-23 20:44] VITALS: BP 133/64
[2017-05-24 03:39] VITALS: BP 123/72
[2017-05-24 08:00] VITALS: BP 151/76
[2017-05-24 16:00] VITALS: BP 123/73
[2017-05-24 20:11] VITALS: BP 142/58
[2017-05-25 04:10] VITALS: BP 150/68
[2017-05-25 08:00] VITALS: BP 140/76
[2017-05-25] MEDS ORDERED: NAMENDA 5 MG TAB5 M1 PO (13:42)
[2017-05-25] MEDS ORDERED: XARELTO15 MG PO (13:42)
[2017-05-25 14:29] VITALS: BP 140/76
== END 2017-05-25 14:58 | disposition home or self-care (01) | DRG 884 ==
LOC: 4S 12:57
PROVIDERS: Internal Medicine; Internal Medicine Geriatric Medicine
DX: F03.90 Unspecified dementia, unspecified severity, without behavioral disturbance, psychotic disturbance, mood disturbance, and anxiety (principal); G93.40 Encephalopathy, unspecified; N18.4 Chronic kidney disease, stage 4 (severe); R41.82 Altered mental status, unspecified; E11.22 Type 2 diabetes mellitus with diabetic chronic kidney disease; K21.9 Gastro-esophageal reflux disease without esophagitis; G47.33 Obstructive sleep apnea (adult) (pediatric); E78.5 Hyperlipidemia, unspecified; I71.4 Abdominal aortic aneurysm, without rupture; I25.10 Atherosclerotic heart disease of native coronary artery without angina pectoris; E11.51 Type 2 diabetes mellitus with diabetic peripheral angiopathy without gangrene; I12.9 Hypertensive chronic kidney disease with stage 1 through stage 4 chronic kidney disease, or unspecified chronic kidney disease; I67.9 Cerebrovascular disease, unspecified; Z91.048 Other nonmedicinal substance allergy status; Z79.899 Other long term (current) drug therapy; Z79.82 Long term (current) use of aspirin; Z86.73 Personal history of transient ischemic attack (TIA), and cerebral infarction without residual deficits; Z86.718 Personal history of other venous thrombosis and embolism; Z90.49 Acquired absence of other specified parts of digestive tract
CPT/HCPCS: 10102

== ENCOUNTER → 2018-02-08 | Outpatient (CLI) | payer OTHER ==
[~2018-02-08] MED LIST changes: +NAMENDA 5 MG TAB5 M1 PO; +XARELTO15 MG PO
[2018-02-08 09:31] LABS: CREATININE 2.4 mg/dL (0.7-1.3)
== END ==
LOC: CAT 08:49
PROVIDERS: Nuclear Medicine Nuclear Cardiology
DX: Z01.812 Encounter for preprocedural laboratory examination (principal); I25.10 Atherosclerotic heart disease of native coronary artery without angina pectoris; I77.810 Thoracic aortic ectasia; J84.10 Pulmonary fibrosis, unspecified; M47.814 Spondylosis without myelopathy or radiculopathy, thoracic region; Z86.711 Personal history of pulmonary embolism; Z71.41 Alcohol abuse counseling and surveillance of alcoholic; Z95.828 Presence of other vascular implants and grafts

== ENCOUNTER → 2018-04-26 | Outpatient (CLI) | payer OTHER | LOC: RAD 04-19 11:14 → SPEECH 10:53 → RAD 10:53 | DX: K21.9 Gastro-esophageal reflux disease without esophagitis (principal); R13.12 Dysphagia, oropharyngeal phase ==

== ENCOUNTER 2018-07-14 10:57 | Inpatient (IN) | payer OTHER ==
--- NOTE | ~2018-07-14 | D ---
[facility] [place] [address] DISCHARGE SUMMARY Name: CHERYL VILLALTA Room #: 219-P [facility] IN M.R.#: [id number] Admission: 07/14/18 ������������������ Attend Phys: Herman Garcias MD, Discharge: 07/17/18 ������������������ Date of : 34 Report #: [id number] THIS REPORT FOR: //name// CC: Stan Garcias DATE OF SERVICE: 07/17/2018 HOSPITAL COURSE: The patient is an 83-year-old male who is well known to us, admitted for right lower extremity pain, swelling and recurrent DVT. He has a history of this in the past, but he has been off anticoagulation since January. Also, has had some progressive dementia. He was admitted and placed on IV heparin; there was relatively extensive clot in the right lower extremity. Echo Doppler was essentially normal showing no right-sided involvement. He has had a prior PE/DVT, but no PE on this setting. Stable coronary artery disease with prior stents and infarcts, hypertension, hypercholesterolemia and aortic stent graft repair. He had 48 hours plus of IV heparin. Decrease in his lower extremity pain. Switched to a direct oral anticoagulant, Eliquis 10 mg p.o. b.i.d. for 7 days and then will go to 5 b.i.d. and that should be q.12 hours indefinitely after the 10 q.12 hours for 7 days. Other medications will be glyburide, Lexapro, Protonix, irbesartan/HCT 150/12.5, generic fish oil, omeprazole, lovastatin 40, fenofibrate, cholestyramine. He was on a insulin sliding scale here; he will not be discharged on insulin. 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 DISCHARGE DIAGNOSES: 1. Extensive right lower extremity deep venous thrombosis. 2. Coronary artery disease, stable. 3. Status post aortic aneurysm repair. 4. Peripheral vascular disease. 5. Hypertension. 6. Hypercholesterolemia. 7. Diabetes. 8. Progressive dementia. DISCHARGE INSTRUCTIONS: Followup will also be scheduled with Dr. Monaco. He will be rescanned in 1 month in my office. If we are having difficulty with the q.12 hours Eliquis, we could consider switching back to Xarelto, but there was some issue with Xarelto usage in the past. Currently, we will continue with the above plan. [address] [address] DISCHARGE SUMMARY Name: CHERYL VILLALTA Room #: 219-P [facility] IN .R.#: [id number] Admission: 07/14/18 ������������������ Attend Phys: Herman Garcias MD, Discharge: 07/17/18 ������������������ Date of : 34 Report #: [id number] Thank you for asking me to assist in the care of this patient. ��������������������������������������������� ���������������������������������������� By: ��������������������������������������������� 0838 1307 Herman Garcias MD, FACC /nt
[2018-07-14 14:05] VITALS: BP 149/72
--- NOTE | 2018-07-14 14:45 | NUR ---
SPOKE WITH MANUFACTURING ENGINEER AND PT DOES NOT MEET CRITERIA FOR ISOLATION.
[2018-07-14 15:07] LABS: HEMATOCRIT 33.8 % (42.0-52.0); HEMOGLOBIN 11.8 gm/dL (14.0-18.0); MCH 32.9 pg (26.0-34.0); MCHC 34.8 g/dL (28.0-37.0); MCV 94.5 fL (80.0-100.0); RBC 3.58 mil/uL (4.50-6.00); RDW 14.2 % (10.5-14.5); WBC 8.1 thou/uL (4.0-11.0)
[2018-07-14 15:14] LABS: CALCIUM 9.1 mg/dL (8.5-10.1); CREATININE 2.4 mg/dL (0.7-1.3); POTASSIUM 4.9 mmol/L (3.5-5.1)
--- NOTE | 2018-07-14 15:22 | 2DMMODE ---
[facility] [place] [address] 2 D/M-MODE ECHOCARDIOGRAM Name: CHERYL VILLALTA Room #: 219-P [facility] IN ..#: [id number] ������������� Admission: 07/14/18 ������������� Attend Phys: Herman Garcias, Discharge: ��� ������������� ��� Date of : 33 Date of Service: 07/14/18 1521 �� Report #: [id number] �������� ��������������������������������������������[id number] THIS REPORT FOR: //name// APPROVED REPORT Study performed: 07/14/2018 13:52:01 EXAM: Comprehensive 2D, Doppler, and color-flow Echocardiogram Patient Location: Bedside Room #: 219 Status: routine BSA: 2.12 HR: 82 bpm BP: 149/72 mmHg Rhythm: NSR Other Information Study Quality: Adequate Indications CAD DVT 2D Dimensions RVDd: 37.54 mm IVSd: 12.38 (7-11mm) LVOT Diam: 23.26 (18-24mm) LVDd: 44.27 mm PWd: 13.13 (7-11mm) Ascending Ao: 35.38 (22-36mm) LVDs: 30.83 (25-40mm) Aortic Root: 35.24 mm IVC: 18.00 mm Volumes Left Atrial Volume (Systole) Single Plane 4CH: 42.50 mL Single Plane 2CH: 63.02 mL LA ESV Index: 30.00 mL/m2 Aortic Valve AoV Peak Naresh.: 1.54 m/s AO Peak Gr.: 9.95 mmHg LVOT Max P.83 mmHg LVOT Max V: 0.98 m/s ERLIN Vmax: 2.69 cm2 Mitral Valve E/A Ratio: 0.6 MV Decel. Time: 306.17 ms [facility] [place] [place] [address] 2 D/M-MODE ECHOCARDIOGRAM Name: RIAZ VILLALTATEAGAN Mathias Room #: 219-P [facility]#: [id number] ������������� Admission: 07/14/18 ������������� Attend Phys: Herman Garcias, Discharge: ��� ������������� ��� Date of : 33 Date of Service: 07/14/18 1521 �� Report #: [id number] �������� ��������������������������������������������[id number] MV E Max Naresh.: 0.82 m/s MV A Naresh.: 1.37 m/s MV PHT: 88.79 ms IVRT: 212.23 ms Pulmonary Valve PV Peak Naresh.: 0.61 m/s PV Peak Gr.: 1.49 mmHg Pulmonary Vein P Vein S: 0.47 m/s P Vein A: 0.27 m/s P Vein D: 0.31 m/s P Vein A Dur.: 106.1 msec P Vein S/D Ratio: 1.52 Tricuspid Valve TR Peak Naresh.: 2.32 m/s TR Peak Gr.: 21.47 mmHg PA Pressure: 26.00 mmHg Left Ventricle The left ventricle is normal size. There is normal LV segmental wall motion. Mild concentric left ventricular hypertrophy. The left ventricular systolic function is normal. The left ventricular ejection fraction is within the normal range. LVEF is 55-60%. Grade I - abnormal relaxation pattern. Right Ventricle The right ventricle is normal size. The right ventricular systolic function is normal. Atria The left atrium size is normal. The right atrium size is normal. Aortic Valve The aortic valve is normal in structure. Aortic valve is calcified. Trace to mild aortic regurgitation. There is no aortic valvular stenosis. Mitral Valve The mitral valve is normal in structure. Trace to mild mitral regurgitation. No evidence of mitral valve stenosis. Tricuspid Valve The tricuspid valve is normal in structure. There is trace tricuspid regurgitation. Estimated PAP 26 mmHg. There is no pulmonary hypertension. [place] [id number] 2 D/M-MODE ECHOCARDIOGRAM Name: CHERYL VILLALTA Room #: 219-P [facility] IN .R.#: [id number] ������������� Admission: 07/14/18 ������������� Attend Phys: Herman Garcias, Discharge: ��� ������������� ��� Date of : 33 Date of Service: 07/14/18 1521 �� Report #: [id number] �������� ��������������������������������������������[id number] Pulmonic Valve The pulmonary valve is normal in structure. There is no pulmonic valvular regurgitation. Great Vessels The aortic root is normal in size. IVC is normal in size and collapses >50% with inspiration. Pericardium There is no pericardial effusion. <Conclusion> The left ventricle is normal size. Mild concentric left ventricular hypertrophy. LVEF is 55-60%. Grade I - abnormal relaxation pattern. The right ventricle is normal size. The left atrium size is normal. The aortic valve is normal in structure. Aortic valve is calcified. Trace to mild aortic regurgitation. Trace to mild mitral regurgitation. There is trace tricuspid regurgitation. Estimated PAP 26 mmHg. There is no pulmonary hypertension. The aortic root is normal in size. There is no pericardial effusion. ��������������������������������������������� <ELECTRONICALLY SIGNED> ���������������������������������������� By: Herman Garcias MD, FACC ��������������������������������������������� 07/14/18 1521 1521 1521 Herman Garcias MD, FACC /INF
[2018-07-14 15:26] LABS: PROTIME 10.7 Seconds (9.3-11.4)
--- NOTE | 2018-07-14 16:25 | NUR ---
DIRECT ADMIT ARRIVED TO UNIT AT 1310. PT HAS SAILMAKER AT BEDSIDE THAT IS UNABLE TO ANSWER MOST ADMIT/HISTORY QUESTIONS. PT IS A&OX3 HOWEVER HE SEEMS TO HAVE POOR RECOLLECTION OF HIS OWN HEALTH HISTORY AND DOES NOT KNOW ANY OF HIS MEDICATIONS. LAB DRAWN, IV STARTED AND PT STARTED ON HEPARIN PER ORDER. SEE HEPARIN FLOW SHEET. NEXT APTT AT 2150. SAILMAKER LEFT SHORTLY AFTER ARRIVING TO UNIT AND STATES TO CALL PT'S WITH ANY QUESTIONS AND THAT PT'S WILL BE HERE ONCE SHE GETS OUT OF WORK. 'S CONTACT INFO LEFT ON WHITE BOARD IN ROOM. PT IS A FALL RISK AND FALL PRECAUTIONS ARE IN PLACE. BED ALARM ON. WILL CONTINUE TO MONITOR PT.
[2018-07-14 16:33] VITALS: BP 155/83
[2018-07-14] MEDS ORDERED: VIT B-1 PO (19:21)
[2018-07-14] MEDS ORDERED: VITAMIN B-6 PO (19:22)
[2018-07-14] MEDS ORDERED: PROTONIX40 M1 PO (19:23)
[2018-07-14] MEDS ORDERED: LEXAPRO 10 MG T10 M1 PO (19:24)
[2018-07-14] MEDS ORDERED: AMARYL2 MG PO (19:26)
[2018-07-14] MEDS ORDERED: IRBESARTAN-HCT1 EACH PO (19:28)
[2018-07-14 20:00] VITALS: BP 134/90
[2018-07-14 23:39] VITALS: BP 154/81
[2018-07-15 05:03] VITALS: BP 128/58
--- NOTE | 2018-07-15 05:12 | NUR ---
RECEIVED PT'S CARE AT 1900; AOX4; NO C/O PAIN; PULSES 2/ DOPPLER PRESENT; ABLE TO ABULATE TO RESTROOM WITH X 1 ASSISST; HEPARIN ADJUSTED BASE ON APTT AT 2313; ABLE TO REST THROUGH THE NIGHT WITH EYES CLOSE; VS WNL; ASSESSMENT CHARGED; FOLLOWING POC; WILL PASS ON REPORT.
[2018-07-15 08:20] VITALS: BP 163/70
--- NOTE | 2018-07-15 09:44 | EKG ---
[address] [place] [address] ELECTROCARDIOGRAM REPORT Name: PAWANCHERYL Room #: 219-P ADM IN M.R.#: [id number] ������������������ Admission: 07/14/18 ������������������ Attend Phys: Herman Garcias MD, Discharge: ������������������ Date of : 34 Report #: [id number] ����������������������������������������������������������������� [id number] THIS REPORT FOR: //name// [facility] Test Date: 2018-07-14 Test Time: 16:53:49 Pat Name: CHERYL VILLALTA Department: Room: 219 P Gender: M Shank Sorter: Rosanna GARCÍA : 1935 Requested By: Lana King Order Number: [id number] MD: Karlo Hunter Measurements Intervals Marty Rate: 65 P: 27 AL: 179 QRS: -37 QRSD: 140 T: 24 QT: 418 QTc: 435 Interpretive Statements Sinus rhythm Atrial premature complexes Right bundle branch block Compared to ECG 05/24/2017 15:27:38 Atrial premature complex(es) now present Sinus tachycardia no longer present Electronically Signed On 07-15-2018 9:44:01 CDT by Karlo Hunter [email or web address] ��������������������������������������������� <ELECTRONICALLY SIGNED> ���������������������������������������� By: Karlo Hunter MD, [facility] ��������������������������������������������� 07/15/18 0944 1653 1653 Karlo Hunter MD, [facility] /EPI
[2018-07-15 11:55] VITALS: BP 137/79
[2018-07-15 15:20] VITALS: BP 137/79
--- NOTE | 2018-07-15 15:22 | NUR ---
Case opened to follow for dc planning. Marriage Therapist visited with the pt at bedside. No family at bedside this afternoon. He is a&ox3 but forgetful. He indicates that he lives at home with his . He uses a cane and has one step to enter the house and 12 down to the basement where he likes to hang out. He reports that his works. She does his med setup, drives and does meal prep and housekeeping. The pt reports that he is legally blind. He could not recall where his works or what she does. The pt has had hh in the recent past with [facility] and [facility] in the distance past. The pt's dtr in law works for [employer] and was here this morning checking on him. Message left for the pt's to contact cm to discuss dc planning options for HH. Choice letter left with the pt at bedside for spouse's signature. The pt does have some post partum nurse private duty care 3 days a week while his is at work. He can not recall the agency or the schedule. Plan at this time is [place]. Pt would benefit from home nursing and therapy f/u. Will follow.
[2018-07-15 16:05] VITALS: BP 125/81
[2018-07-15 20:57] VITALS: BP 121/75
[2018-07-16 05:56] VITALS: BP 131/66
--- NOTE | 2018-07-16 06:06 | NUR ---
RECEIVED PT'S CARE AT 1910; PT. ON BED; SLEEPING; AOX4; FORGETFUL; EDUCATED ABOUT FALL PREVENTION; FORGETS TO CALL BEFORE STANDING UP FROM BED OR WALKING BACK FROM RESTROOM TO BED; REMAINED ABOUT THE NEED TO CALL; ST. UNDERSTANDING; NO C/O PAIN THROUGH THE NIGHT; NO SWELLING OVER RLE; ABLE TO AMBULATE WITHOUT PAIN; MONITORING MORNING APTT; ASSESSMENT CHARGED; FOLLOWING POC; WILL PASS ON REPORT.
[2018-07-16 08:20] VITALS: BP 135/71
[2018-07-16 12:00] VITALS: BP 105/52
--- NOTE | 2018-07-16 13:36 | NUR ---
ASSUMED CARE THIS AM AT 1000. SHIFT ASSESSMENT DONE, MEDS GIVEN, VSS. DENIES PAIN, NAUSEA, VOMITING. UP IN THE CHAIR THIS AM. RECEIVING ORAL ANTICOAGULANT. POSSIBLE DC TOMORROW TO HOME.
--- NOTE | 2018-07-16 14:32 | NUR ---
[facility] advised to possible dc to home tomorrow. orders including the dc instructions and dc summary need to be faxed to [facility] [phone] and call the oncall nurse at [phone] to confirm dc to home.
[2018-07-16 15:50] VITALS: BP 151/83
[2018-07-16 19:38] VITALS: BP 147/79
--- NOTE | 2018-07-17 04:19 | NUR ---
RECEIVED PT'S CARE AT 1900; PT. ON BED WATCHING TV; AOX4; EDUCATED ABOUT CALLING BEFORE STANDING UP; ST. UNDERSTANDING; DURING ASSESSMENT BS AT 197; REFUSED INSULING; NO C/O PAIN; ST. PASSING GAS AND HAVING SOFT LOOSE STOOLS X 3; NOT ABNORMAL FOR HIM; EDUCATED ABOUT C.DIFF PROTOCOL; ST. UNDERSTANDING; AT MIDNIGHT PT. HAD SOFT FORM SMALL (25 CTVS SIZE) BM; NO SAMPLE SEND TO LAB; NO STOMACH PAIN; NO MORE BMs DURINT THE REST OF THE NIGHT; VS WNL; ABLE TO REST THROUGH THE NIGHT; CALLED APROPIATELY; ASSESSMENT CHARGED; FOLLOWING POC; WILL KEEP MONITORING; WILL PASS ON REPORT.
[2018-07-17 05:02] VITALS: BP 150/86
[2018-07-17 06:27] LABS: HEMATOCRIT 34.4 % (42.0-52.0); HEMOGLOBIN 11.9 gm/dL (14.0-18.0); MCH 32.8 pg (26.0-34.0); MCHC 34.5 g/dL (28.0-37.0); MCV 95.1 fL (80.0-100.0); RBC 3.62 mil/uL (4.50-6.00)
[2018-07-17 07:55] VITALS: BP 121/65
[2018-07-17] MEDS ORDERED: ELIQUIS5 MG PO (08:33)
[2018-07-17 10:11] VITALS: BP 137/79
--- NOTE | 2018-07-17 11:54 | NUR ---
ASSUMED CARE OF PT AT 0645. PLAN TO DC TO HOME WITH HH TODAY. ORDER FOR HH NOT IN COMPUTER, BUT IS AWARE OF PLAN AND HAS ALREADY TALKED TO HH. OK TO ADD ORDER FOR HH PER CHRISTEN GARCÍA FOR [facility]
== END 2018-07-17 11:04 | disposition home health service (06) | DRG 301 ==
LOC: ULTRA 10:57 → 2N 13:10
PROVIDERS: Nurse Practitioner Gerontology; ADMIT Internal Medicine Cardiovascular Disease
DX: I82.411 Acute embolism and thrombosis of right femoral vein (principal); I25.10 Atherosclerotic heart disease of native coronary artery without angina pectoris; I10 Essential (primary) hypertension; E78.00 Pure hypercholesterolemia, unspecified; E11.51 Type 2 diabetes mellitus with diabetic peripheral angiopathy without gangrene; F03.90 Unspecified dementia, unspecified severity, without behavioral disturbance, psychotic disturbance, mood disturbance, and anxiety; I71.4 Abdominal aortic aneurysm, without rupture; I65.29 Occlusion and stenosis of unspecified carotid artery; Z95.5 Presence of coronary angioplasty implant and graft; Z79.899 Other long term (current) drug therapy
CPT/HCPCS: 10081

== ENCOUNTER 2019-05-16 13:57 | Inpatient (IN) | payer OTHER ==
[~2019-05-16] VITALS: Ht 177.8 cm; Wt 95.0 kg
--- NOTE | ~2019-05-16 | P ---
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 A patient of Dr. Stan Monaco. INDICATION FOR PROCEDURE: Severe iron deficiency anemia and hematochezia by history. Informed consent for this procedure was obtained prior to the administration of any medication. The risks of the procedure, which include bleeding, perforation, infection, complications of sedation and the possibility I could miss something have been explained to the patient. He has indicated his consent by signing. Anesthesia kindly provided deep sedation for this procedure and the colonoscopy that followed it. DESCRIPTION OF PROCEDURE: With the patient in the left lateral decubitus position, the Olympus upper videoscope was introduced through the upper esophageal sphincter and advanced under direct visualization to the third portion of the duodenum. Findings are noted on withdrawal of the scope. The visualized portion of the third portion of the duodenum appears normal. The second portion of duodenum appears normal except for a tiny nonbleeding arteriovenous malformation that we obliterated with a BICAP cautery system. The remaining duodenal mucosa appears normal Pylorus, normal mucosa. In the antrum, there is very mild gastric antral vascular ectasia syndrome noted. I do not think that is the source of any significant GI blood loss. The stomach itself was edematous and there is an appearance of a portal hypertensive gastropathy here of the body of the stomach, particularly. Retroflex view did not reveal any significant hiatal hernia. The patient does have a very hemorrhagic appearing tiny 7 mm polyp in the cardia of the stomach that was removed in toto with a hot snare and sent to pathology lab. The base of this polypectomy site oozed slightly as this was very friable tissue and we cauterized it and applied a clip with good hemostasis noted. We applied first [address] [address] PROCEDURE REPORT Name: CHERYL VILLALTA Room #: 361-P [facility] IN M.R.#: [id number] Admission: 05/16/19 Attend Phys: Rosanna Melo Discharge: Date of : 34 Report #: [id number] clips that fell off very easily because of the friability of the tissue and the third clip was firmly in place. The scope was withdrawn into the esophagus. The Z-line is appropriately located to stop the gastric folds and appears normal. The esophageal mucosa appears normal throughout its entirety. The scope was withdrawn. The patient was turned for colonoscopy. IMPRESSION: 1. 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 2. Gastric antral vascular ectasia syndrome, mild. 3. Portal hypertensive gastropathy and diffuse edema of the stomach. 4. A 5 mm to 6 mm polyp in the cardia of the stomach appears very friable and was removed and sent to pathology lab. RECOMMENDATIONS: My recommendations were to monitor the H and H closely and we will proceed with colonoscopy at this time. Thank you very much once again for allowing me to participate in his care. By: 1353 1405 Keren Nuno DO /nt
--- NOTE | ~2019-05-16 | H ---
[facility] [place] [address] HISTORY AND PHYSICAL Name: CHERYL VILLALTA Room #: 361-P ADM IN M.R.#: [id number] Admission: 05/16/19 Attend Phys: Rosanna Melo Discharge: Date of : 34 Report #: [id number] THIS REPORT FOR: //name// CC: Phill Monaco DATE OF SERVICE: 05/16/2019 HISTORY OF PRESENT ILLNESS: An 83-year-old male with severe weakness, shortness of breath, possibly some increasing confusion, and findings of severe anemia. PAST MEDICAL HISTORY: Noteworthy for severe peripheral vascular disease with underlying diabetes, chronic renal insufficiency, cerebrovascular disease with some mild dementia. He has had multiple aortic aneurysms with aortic stent. He has gastroesophageal reflux disease. He has had a prostatectomy back in 2001 for prostate cancer. He has sleep apnea, very poor vision. PAST SURGICAL HISTORY: He has had a previous appendectomy, cholecystectomy. MEDICATIONS: List is documented on the record. FAMILY HISTORY, SOCIAL HISTORY, AND REVIEW OF SYSTEMS: Otherwise, negative. Basically, he is cared by his . REVIEW OF SYSTEMS: Not reliable from the patient. PHYSICAL EXAMINATION: GENERAL: Shows a very pale appearing male. He is in no distress. VITAL SIGNS: Stable, but he looked much weaker. HEENT: Otherwise, negative. NECK: Supple, without thyromegaly or adenopathy. CHEST: Clear. CARDIOVASCULAR: Showed a regular rate and rhythm without murmur. ABDOMEN: Soft and nontender. EXTREMITIES: No cyanosis, clubbing, or edema. NEUROLOGIC: Showed just some dementia, very mild with poor vision. ASSESSMENT AND PLAN: This is a patient with severe anemia that is critical and transfusion is needed. I suspect slow GI bleed and iron deficiency, but there could be multiple other reasons why he is anemic and a lot will depend upon what the initial studies show. We will be stopping anticoagulation, transfusing with [facility] [address] [place] [address] HISTORY AND PHYSICAL Name: CHERYL VILLALTA Room #: 361-P [facility] IN [facility]#: [id number] Admission: 05/16/19 Attend Phys: Rosanna Melo Discharge: Date of : 34 Report #: [id number] a hemoglobin over 8, and close followup. Comorbid conditions of diabetes, peripheral vascular disease, and ischemic heart disease. By: 1132 1232 Phill Monaco MD /MARILIA
--- NOTE | ~2019-05-16 | P ---
[facility] [place] [address] PROCEDURE REPORT Name: CHERYL VILLALTA Room #: 361-P ADM IN M.R.#: [id number] Admission: 05/16/19 Attend Phys: Rosanna Melo Discharge: Date of : 34 Report #: [id number] THIS REPORT FOR: cc: Phill Monaco MD,Keren Fuentes MD, DO ~ CC: Stan Monaco PROCEDURE: Colonoscopy with polypectomies. He is a patient of Dr. Stan Monaco. INDICATION FOR PROCEDURE: This patient presented with a low hemoglobin of 6.5. He is iron deficient. The etiology of his iron deficiency anemia is unclear. His reports seeing some blood clots in his stool. The patient had reported increasing shortness of breath recently and feeling tired. EGD preceded this colonoscopy and there was a nonbleeding arteriovenous malformation in the second portion of the duodenum that was ablated with the BICAP. There was a portal hypertensive gastropathy appearance to the stomach, there was edema of the stomach. In the cardia of the stomach, there was a very erythematous polyp that may have been the source of some blood loss that was removed in toto with a hot snare. We had to cauterize the base and finally placed a clip on the base of this polypectomy site in the cardia of the stomach with good hemostasis noted after that clip placement. The scope was then withdrawn into the esophagus. The Z-line was appropriately located at the top of the gastric folds and appeared normal. Colonoscopy is being performed to evaluate for further etiologies of blood loss. Informed consent for this procedure was obtained prior to the administration of any medication. The risks of the procedure, which include bleeding, perforation, infection, complications of sedation and the possibility I could miss something have been explained to the patient and he has indicated his consent by signing. Anesthesia kindly provided deep sedation for this procedure and the EGD that preceded it. DESCRIPTION OF PROCEDURE: With the patient in the left lateral decubitus position, a digital rectal exam was performed and no abnormalities were palpated other than we did notice that he has a very large external hemorrhoid. Then, the Olympus colonoscope was introduced through the anal sphincter and advanced under direct visualization to the terminal ileum. Findings are noted on withdrawal of the scope. First of all, it should be noted that the prep was fairly good. There was still some stool that could be washed away, so that we could see easily underneath it. The terminal ileal mucosa appears normal. Cecum, normal mucosa. Ascending colon, a few uncomplicated diverticula are [facility] [address] [place] [address] PROCEDURE REPORT Name: CHERYL VILLALTA Room #: 361-P [facility] IN .R.#: [id number] Admission: 05/16/19 Attend Phys: Rosanna Melo Discharge: Date of : 34 Report #: [id number] noted in the ascending colon. Hepatic flexure, normal mucosa. Transverse colon, uncomplicated diverticulosis is noted. Splenic flexure, normal mucosa. Descending colon, uncomplicated diverticulosis is noted. Sigmoid colon, multiple uncomplicated diverticula are noted in the sigmoid colon. Rectum a couple of hyperplastic appearing polyps were noted in the distal rectum and these were removed in toto with regular biopsy forceps and sent to pathology lab. Good hemostasis was noted after those polypectomies. The scope was withdrawn slowly then through the anal canal. I do note that he does have some very dilated rectal veins that could possibly be a source of some blood loss. He has external hemorrhoids in the anal canal and then he has a large external hemorrhoid on the outside of the anal canal. The scope was withdrawn. The patient went to the recovery area in stable condition. He tolerated the procedure well. IMPRESSION: 1. Pancolonic uncomplicated diverticulosis. 2. Two small hyperplastic appearing polyps in the rectum removed both less than 5 mm in size. 3. External hemorrhoids, nonbleeding at the present time. 4. Prominent rectal veins. RECOMMENDATIONS: For him to be on a high fiber diet and replace his iron stores with IV iron. We will monitor his H and H closely as well as his stools. He may need a small bowel video capsule study done if the blood loss is ongoing after these procedures have been performed. The treatment; however, we will remain the same most likely and that will be to monitor his iron levels and his hemoglobin and replace his iron stores as they become depleted. Thank you very much once again for allowing me to participate in his care, Dr. Monaco. By: 1345 1353 Keren Nuno, /nt
[~2019-05-16 13:57] MED LIST changes: +ELIQUIS5 MG PO; +IRBESARTAN-HCT1 EACH PO; +LEXAPRO 10 MG T10 M1 PO; -PREVALITE PACKE1 PKT PG; +PREVALITE PACKET4 GM PO; +PROTONIX40 M1 PO; +VIT B-1 PO; +VITAMIN B-6 PO
[2019-05-16] MEDS ORDERED: ELIQUIS5 MG PO (15:19)
[2019-05-16] MEDS ORDERED: VITAMIN B-125000 MCG PO (15:28)
[2019-05-16 16:04] VITALS: BP 148/71
--- NOTE | 2019-05-16 18:00 | NUR ---
PT ADMITTED DIRECT ADMIT FROM DR Aurora HARGROVE'S OFFICE..HE LIVES AT HOME WITH SPOUSE SHAYLA..REPORTS FEELING WEAKER AND SHORT OF AIR RECENTLY...ALSO REPORTS SOME RECENMT BACK PAIN..DENIES BACK PAIN AT PRESENT..APPARENTLY HE HAS HAD HOME HEALTH [facility] X 1 MO AND HAS ALSO BEEN GOING TO PT/OT/ST OUTPATIENT... REPORTS MEMORY ISSUES S/P CVA ...HE WALKS INDEPENDLY AT HOME AND USES CANE/WALKER AT TIMES...PREVIOUSLY USED CPAP THEN CHANGED TO NASAL PRONGS BUT NOW CAN'T TOLERATE EITHER MACHINE...ALSO IS LEGALLY BLIND WITH SOME PERIPHERAL VISION...
[2019-05-16 18:52] LABS: ABSOLUTE NEUTROPHILS 5.8 thou/uL (1.4-8.2); EOSINOPHILS 2.1 % (0.0-3.0); MCV 79.9 fL (80.0-100.0); RDW 18.5 % (10.5-14.5)
[2019-05-16 18:54] LABS: BASOPHILS 0.8 % (0.0-2.0); HEMATOCRIT 21.7 % (42.0-52.0); HEMOGLOBIN 6.5 gm/dL (14.0-18.0); LYMPHOCYTES 20.2 % (24.0-44.0); MCHC 30.1 g/dL (28.0-37.0); PLATELET COUNT 320 thou/uL (150-400); POLYS 67.9 % (36.0-66.0); RBC 2.72 mil/uL (4.50-6.00); WBC 8.6 thou/uL (4.0-11.0)
[2019-05-16 19:17] LABS: ALBUMIN 3.5 g/dL (3.4-5.0); CALCIUM 8.8 mg/dL (8.5-10.1); CREATININE 2.2 mg/dL (0.7-1.3); POTASSIUM 4.4 mmol/L (3.5-5.1); TOTAL BILIRUBIN 0.1 mg/dL (<0.1-1.0); TOTAL PROTEIN 6.8 g/dL (6.4-8.2)
[2019-05-16 19:57] VITALS: BP 133/53
[2019-05-17] VITALS (7 sets, daily range): BP systolic 128–153; BP diastolic 55–81
--- NOTE | 2019-05-17 06:34 | NUR ---
Dr. Abner Monaco notified of low hgb last night. Pt. transfused two units of PRBC per order. He tolerated blood transfusions well. No active bleeding. Had med bm ,formed and brown in color. Up with assist to bathroom , he uses cane at times. Pt. is legally blind . He gets short of breath with exertion. O2 sat in the mid 90's in RA. Bed alarm on for safety. Will continue to monitor.
--- NOTE | 2019-05-17 07:57 | NUR ---
0702 Report received from Aby ENAMORADO patient laying in bed no complaints or concerns at this time. Call light within reach
--- NOTE | 2019-05-17 08:10 | EKG ---
[facility] [place] [address] ELECTROCARDIOGRAM REPORT Name: CHERYL VILLALTA Room #: 361- ADM IN M.R.#: [id number] Admission: 05/16/19 Attend Phys: Rosanna Melo Discharge: Date of : 34 Report #: [id number] THIS REPORT FOR: cc: Phill Monaco MD, Christopher B. MD Couchonnal, Luis F. MD ~ THIS REPORT FOR: //name// [facility] Test Date: 2019-05-16 Test Time: 21:53:34 Pat Name: CHERYL VILLALTA Department: Room: 361 Gender: M Perfect Binder Feeder Offbearer: delicia : 1935 Requested By: Phill Monaco Order Number: [id number] MD: Ahmet Pimentel Measurements Intervals [place] Rate: 97 P: 48 MS: 186 QRS: -26 QRSD: 118 T: 44 QT: 383 QTc: 487 Interpretive Statements Sinus tachycardia Multiform ventricular premature complexes Incomplete right bundle branch block Baseline wander in lead(s) V4 Compared to ECG 07/14/2018 16:53:49 Electronically Signed On 05-17-2019 8:09:43 EVENTS ADMINISTRATIVE ASSISTANT by Ahmet Pimentel [email or web address] <ELECTRONICALLY SIGNED> By: Ahmet Pimentel MD 05/17/19 0809 52 52 Ahmet Pimentel MD /EPI
[2019-05-17 08:33] LABS: HEMATOCRIT 23.8 % (42.0-52.0); HEMOGLOBIN 7.5 gm/dL (14.0-18.0); MCH 25.1 pg (26.0-34.0); MCHC 31.4 g/dL (28.0-37.0); MCV 79.8 fL (80.0-100.0); RBC 2.98 mil/uL (4.50-6.00); RDW 17.5 % (10.5-14.5)
[2019-05-17 08:48] LABS: CALCIUM 8.6 mg/dL (8.5-10.1); CREATININE 2.1 mg/dL (0.7-1.3); POTASSIUM 4.6 mmol/L (3.5-5.1)
--- NOTE | 2019-05-17 14:55 | 2DMMODE ---
[facility] [place] [address] 2 D/M-MODE ECHOCARDIOGRAM Name: CHERYL VILLALTA Room #: 361-P ADM IN M.R.#: [id number] Admission: 05/16/19 Attend Phys: Rosanna Melo Discharge: Date of : 34 Report #: [id number] THIS REPORT FOR: cc: Phill Monaco MD, Christopher B. MD Lundgren, Craig H. MD [facility] ~ APPROVED REPORT Study performed: 05/17/2019 13:05:25 EXAM: Comprehensive 2D, Doppler, and color-flow Echocardiogram Patient Location: Echo lab Room #: 361 Status: routine BSA: 13.25 HR: 95 bpm BP: 153/73 mmHg Rhythm: Sinus arrhythmia/PVCs Other Information Study Quality: Adequate Technically limited study due to no patient participation. Indications Short of air. Hx: CAD, PVD, HTN, HLP, DM. 2D Dimensions RVDd: 37.16 mm IVSd: 16.80 (7-11mm) LVOT Diam: 22.21 (18-24mm) LVDd: 56.73 mm PWd: 13.17 (7-11mm) Ascending Ao: 36.16 (22-36mm) LVDs: 42.85 (25-40mm) Aortic Root: 34.40 mm Volumes Left Atrial Volume (Systole) Single Plane 4CH: 67.46 mL Single Plane 2CH: 83.93 mL Aortic Valve AoV Peak Naresh.: 2.09 m/s AO Peak Gr.: 17.76 mmHg LVOT Max P.56 mmHg AO Mean Gr.: 9.23 mmHg AO V2 Mean: 1.42 m/s LVOT Max V: 1.06 m/s [facility] [place] [address] 2 D/M-MODE ECHOCARDIOGRAM Name: CHERYL VILLALTA Stew Room #: 361-P [facility] IN ..#: [id number] Admission: 05/16/19 Attend Phys: Phill Phipps Discharge: Date of : 34 Report #: [id number] AO V2 VTI: 37.74 cm ERLIN Vmax: 1.96 cm2 Mitral Valve E/A Ratio: 1.4 MV Decel. Time: 301.53 ms MV E Max Naresh.: 1.19 m/s MV A Naresh.: 0.86 m/s MV PHT: 87.44 ms IVRT: 87.66 ms Pulmonary Vein P Vein S: 0.85 m/s P Vein D: 0.92 m/s P Vein S/D Ratio: 0.92 Tricuspid Valve TR Peak Naresh.: 3.20 m/s RAP Estimate: 10.00 mmHg TR Peak Gr.: 41.00 mmHg PA Pressure: 51.00 mmHg Left Ventricle The left ventricle is normal size. There is normal LV segmental wall motion. Mild left ventricular hypertrophy. Left ventricular systolic function is normal. LVEF is 50-55%. This study is not technically sufficient to allow evaluation of the LV diastolic function. Right Ventricle The right ventricle is normal size. The right ventricular systolic function is normal. Atria Left atrium is dilated. The right atrium size is normal. Aortic Valve The aortic valve mildly calcified. Mild aortic regurgitation. Very mild aortic valvular stenosis. Mitral Valve Mild mitral annular calcification. Moderate mitral regurgitation. No evidence of mitral valve stenosis. Tricuspid Valve The tricuspid valve is normal in structure. Mild tricuspid regurgitation. Estimated PAP is 50-55mmHg. [facility] [address] [place] [address] 2 D/M-MODE ECHOCARDIOGRAM Name: CHERYL VILLALTA Room #: 361-P [facility] IN ..#: [id number] Admission: 05/16/19 Attend Phys: Phill Phipps Discharge: Date of : 34 Report #: [id number] Pulmonic Valve Pulmonic valve is not well visualized. Trace pulmonic regurgitation. Great Vessels The aortic root is normal in size. The ascending aorta is normal in size. IVC is dilated and collapses <50% with inspiration. Pericardium There is no pericardial effusion. <Conclusion> Left ventricular systolic function is normal. There is normal LV segmental wall motion. LVEF is 50-55%. The aortic valve mildly calcified. Very mild aortic valvular stenosis; mild aortic insufficiency. Mild mitral annular calcification. Moderate mitral regurgitation. Mild tricuspid regurgitation. Estimated pulmonary artery pressure of 50-55mmHg. There is no pericardial effusion. <ELECTRONICALLY SIGNED> By: Karlo Hunter MD, FACC 05/17/19 1454 145 145 Karlo Hunter MD, FACC /INF
--- NOTE | 2019-05-17 16:23 | NUR ---
INITIAL ASSESSMENT: SW reviewed chart and spoke with nursing. Pt was a direct admission from Dr. Stan Monaco's office due to SOB/Anemia. Pt received blood transfusion. SW met with pt and spouse at bedside. Introduced role of SW. Pt is alert to self. Pt with hx of dementia. Pt and spouse live in their home. 1 step to enter. No steps inside. Pt has a cane and walker to use for ambulation. Pt has used [facility] in the past, and would like to use them again if needed at time of discharge. Pt's states they would be agreeable with post-acute placement at [facility] if needed. Pt's PCP is Dr. Stan Monaco. Pt is currently doing outpatient therapy at [facility]. SW faxed HH referral to [facility] and notified liaison of new referral. JESUS is following to assist as needed with discharge planning.
--- NOTE | 2019-05-17 17:21 | EKG ---
[facility] [place] [address] ELECTROCARDIOGRAM REPORT Name: CHERYL VILLALTA Room #: 361- ADM IN M.R.#: [id number] Admission: 05/16/19 Attend Phys: Rosanna Melo Discharge: Date of : 34 Report #: [id number] THIS REPORT FOR: cc: Phill Monaco MD, Christopher B. MD Lundgren, Craig H. MD [facility] ~ THIS REPORT FOR: //name// [facility] Test Date: 2019-05-17 Test Time: 14:06:47 Pat Name: CHERYL VILLALTA Department: Room: 361 Gender: M Tap Puller: Rosanna GARCÍA : 1935 Requested By: Pattie Mcgraw Order Number: [id number] MD: Karlo Hunter Measurements Intervals [place] Rate: 88 P: 12 MI: 158 QRS: -14 QRSD: 132 T: 40 QT: 398 QTc: 482 Interpretive Statements Sinus rhythm Multiple premature complexes, vent & supraven Right bundle branch block Compared to ECG 05/16/2019 21:53:34 Right bundle-branch block now present Electronically Signed On 05-17-2019 17:20:09 CORPORATE TREASURER by Karlo Hunter [email or web address] <ELECTRONICALLY SIGNED> By: Karlo Hunter MD, FAC 05/17/19 1720 1406 1406 Karlo Hunter MD, [facility] /EPI
--- NOTE | 2019-05-17 17:58 | NUR ---
Patient has not eaten very well today. His states his confusion is worse he follows commands he will get up without assistance alarms in place. He has been forgetful for me. One unit prbc transfused this afternoon. Patient has not had a BM to collect the occult stool.
[2019-05-17 18:07] LABS: HEMATOCRIT 27.9 % (42.0-52.0); HEMOGLOBIN 8.7 gm/dL (14.0-18.0)
[2019-05-18 03:29] VITALS: BP 155/75
--- NOTE | 2019-05-18 05:40 | NUR ---
Pt. very forgetful and impulsive. Frequent reorientation given. Bed alarm on for safety. Denies any pain or concern at this time. Slept better last night once he started sleeping as compared to the night before. No active bleeding. No bm this shift , unable to collect stool for OB test. Tolerating room air well. Making prpogress towards care plan goals.
--- NOTE | 2019-05-18 07:42 | NUR ---
O700 REPORT RECEIVED FROM MARK, THE PATIENT IS SITTING ON THE SIDE OF THE BED HE HAS C/O A UPSET STOMACH. HE STATES IT IS A NAUSEA HURT NOT A PAIN HURT. HIS BOWEL SOUNDS ARE VERY HYPER ACTIVE. I JUST GOT OFF THE PHONE WITH THE SHE STATES THIS IS A COMMON REOCCURRING COMPLAINT ALONG WITH A BACK ACHE.
[2019-05-18 07:47] VITALS: BP 138/73
[2019-05-18 09:27] LABS: HEMATOCRIT 29.2 % (42.0-52.0); MCH 25.6 pg (26.0-34.0); MCV 82.4 fL (80.0-100.0); RBC 3.54 mil/uL (4.50-6.00); RDW 18.1 % (10.5-14.5); WBC 8.6 thou/uL (4.0-11.0)
[2019-05-18 09:35] LABS: CALCIUM 8.5 mg/dL (8.5-10.1); CREATININE 2.3 mg/dL (0.7-1.3); POTASSIUM 4.2 mmol/L (3.5-5.1)
[2019-05-18 11:09] VITALS: BP 109/52
[2019-05-18 14:53] LABS: % SATURATION 11 % (20-39); IRON 61 ug/dL (65-175); TIBC 532 ug/dL (250-450)
[2019-05-18 15:11] VITALS: BP 135/67
[2019-05-18 19:45] VITALS: BP 151/66
--- NOTE | 2019-05-19 03:02 | NUR ---
ASSUMED PT CARE AT APPROX 1900.PT ALERT/CONFUSED AND FORGETFUL.PT DENIED PAIN AT START OF SHIFT.PT DID HIS BOWEL PREP,NPO AT THIS TIME FOR EGD AND COLONOSCOPY IN THE AM.NO S/S OF BLEEDING NOTED.PT IMPULSIVE NEEDS CONSTANT REMINDER TO USE THE CALL LIGHT FOR ASSISTANCE.FALL PRECAUTIONS IN PLACE.REPORT GIVEN TO DANYELLE AT MIDNIGHT.
[2019-05-19 04:20] VITALS: BP 146/88
--- NOTE | 2019-05-19 05:13 | HC ---
[facility] [place] [address] CONSULTATION Name: CHERYL VILLALTA Room #: 361-P ADM IN M.R.#: [id number] Admission: 05/16/19 Attend Phys: Rosanna Melo Discharge: Date of : 34 Report #: [id number] THIS REPORT FOR: cc: Phill Monaco MD, Christopher B. MD Graessle, Donna M. DO ~ CC: Phill Garcias MD DATE OF SERVICE: 05/18/2019 GASTROENTEROLOGY CONSULTATION He is a patient of Dr. Stan Monaco and Dr. Stan Teran. CHIEF COMPLAINT: This is a very pleasant 84-year-old male with dementia, whom I am asked to evaluate for possible sources of hematochezia. The patient reports seeing a blood clot on the patient's underwear that was red in color. She does not see all of his stools and does not know if he has been having more blood per rectum than what she has seen so far on his underwear, but we are asked to see him for this reason. The patient also has been having some periumbilical abdominal pain. His states that he has also had nausea, vomiting and some diarrhea. She denies that he has had any hematemesis or melena. PAST MEDICAL HISTORY: Quite extensive. He had a cerebrovascular accident, followed by an intracerebral bleed 2 years ago and he has had dementia since that time. He has a history of an abdominal aortic aneurysm and aortic stent graft. He has had a history of prostate cancer, hypertension, diabetes mellitus, hyperlipidemia, renal insufficiency, peripheral vascular disease. He has had some narrowing of his carotid arteries. He has a right deep vein thrombosis. He has chronic back pain, coronary artery disease and peripheral arterial disease in his lower extremities that required intervention by our Interventional Radiology. PAST SURGICAL HISTORY: Significant for cholecystectomy and has also had a prostatectomy and an abdominal aortic stent placed. ALLERGIES: ACTOS which caused a raspy cough. MEDICATIONS: Prior to admission included Eliquis, Protonix, irbesartan, glimepiride, lovastatin, fenofibrate, cholestyramine, Lexapro, Amaryl, vitamin B12, fish oil, folic acid, vitamin C and E, zinc, copper, lutein and zeaxanthin as PreserVision AREDS 2, memantine. [address] [address] CONSULTATION Name: CHERYL VILLALTA Room #: 361-P [facility] IN [facility].#: [id number] Admission: 05/16/19 Attend Phys: Rosanna Melo Discharge: Date of : 34 Report #: [id number] SOCIAL HISTORY: He drinks about 2 cocktails per night. He does not smoke. He quit smoking about 3-4 years ago. FAMILY HISTORY: Significant for colon cancer in his mother. The patient has not had a colonoscopy for about the last 5 years and he does have a history of colon polyps. His says that he does not tolerate sedation with anesthesia or even propofol very well. REVIEW OF SYSTEMS: The patient denies any dysphagia, odynophagia, gastroesophageal reflux or hiatal hernia. He has no history of peptic ulcer disease, says his weights been going up. His appetite has been good. He denies any change in bowel habits such as increasing constipation or diarrhea. He denies any blood in the stool. His is one that saw the blood. He denies any jaundice, hepatitis, cholelithiasis, cholecystitis or pancreatitis. He does complain of periumbilical pain. He complains of bilateral lower back pain. The patient states that he is legally blind. PHYSICAL EXAMINATION: GENERAL: Reveals a well-developed, well-nourished 84-year-old white male in no apparent distress at the time of the examination. He is awake and alert, I believe is oriented. He does have significant dementia and his history has been corrected by his over the phone. HEENT: He is normocephalic, atraumatic and anicteric. HEART: Rate and rhythm are regular. He is in normal sinus rhythm on the monitor at this time. LUNGS: Clear bilaterally. ABDOMEN: Rotund. Bowel sounds are present in all 4 quadrants. There is no palpable organomegaly or mass. There is tenderness in the periumbilical area to palpation, but no rebound or guarding. EXTREMITIES: Warm and dry. No peripheral cyanosis, clubbing or edema. NEUROLOGIC: He appears grossly intact without lateralizing signs, so I did not test him extensively. Neurologically, he does show significant signs of dementia. IMPRESSION: 1. Significant anemia. He was admitted with a hemoglobin of 6.5 and has been transfused and today is up to 9.0. His MCV is 79. His iron saturation is 11%, so he is iron deficient and probably losing blood from his gastrointestinal tract. 2. He has also been complaining of shortness of breath that may be related to his low hemoglobin, but he has mild bilateral interstitial opacities that may indicate an atypical infection or pulmonary edema. 3. The patient has had hematochezia in small volume. He has abdominal pain in the periumbilical region. 4. Iron deficiency anemia. 5. Right lower extremity deep venous thrombosis. [address] [address] CONSULTATION Name: CHERYL VILLALTA Room #: 361-P [facility] IN [facility]#: [id number] Admission: 05/16/19 Attend Phys: Rosanna Melo Discharge: Date of : 34 Report #: [id number] 6. Last colonoscopy 5 years ago and the patient has a history of colon polyps. His mother has a history of colon cancer and now he has hematochezia and uncertain etiology and a change in bowel habits with looser stools of uncertain etiology. He also has periumbilical abdominal pain. 7. Hypertension. 8. Diabetes mellitus. 9. Hyperlipidemia. 10. Cerebrovascular accident with intracerebral bleed 2 years ago. 11. Abdominal aortic aneurysm with an aortic stent placed. 12. History of prostate cancer. The patient underwent prostatectomy apparently for cure. 13. The patient is legally blind. 14. Chronic back pain. 15. History of coronary artery disease, so left ventricular ejection fraction of 50-55%. 16. Mild carotid arterial stenosis. 17. Peripheral arterial disease with Interventional Radiology performing procedures on his legs bilaterally. RECOMMENDATIONS: 1. My recommendations were for him to have a colonoscopy and an EGD performed. We will have Anesthesia to see him tomorrow about sedating him. His had reported difficulty with recovering from anesthesia in a timely fashion. 2. We will repeat his chest x-ray in the morning and monitor his H and H through the night. 3. The patient's last dose of Eliquis may have been on Thursday. Thank you very much once again for allowing me to participate in his care. <ELECTRONICALLY SIGNED> By: Keren Nuno DO 05/19/19 0513 1807 2331 Keren Nuno DO /nt
[2019-05-19 10:25] VITALS: BP 148/89
[2019-05-19 11:12] VITALS: BP 149/76
--- NOTE | 2019-05-19 14:58 | NUR ---
ASSUMED CARE AT 0900, SHIFT ASSESSMENT DONE, MEDS GIVEN, VSS. DENIES PAIN, NAUSEA, VOMITING. NPO SINCE LAST NIGHT. WENT FOR EGD AND COLONOSCPY, NO SOURCE OF BLEEDING. RESTING NOW, NSR ON MONITOR. WILL CONTINUE TO ASSESS AND ASSIST WITH ADLs NEEDED.
--- NOTE | 2019-05-19 15:54 | NUR ---
JESUS reviewed chart and spoke with nursing and attending physician. Pt had EGD and colonoscopy earlier today. Recommendation made for pt to go to SNF when discharged. JESUS spoke with pt's , Olga, via phone to discuss discharge plan. [facility]. JESUS is following to assist as needed with discharge planning.
--- NOTE | 2019-05-19 15:59 | NUR ---
DISCHARGE PLANNING. POST ACUTE RECOMMENDED AT DISCHARGE. PATIENT REFERRAL FAXED TO [facility] PER REQUEST. CALL PLACED TO [facility] TO NOTIFY. UNIT SW AWARE. FOLLOWING.
[2019-05-19 16:30] VITALS: BP 131/84
[2019-05-19 19:35] VITALS: BP 136/79
[2019-05-20 04:54] VITALS: BP 153/76
[2019-05-20 07:49] VITALS: BP 123/56
[2019-05-20] MEDS ORDERED: METOPROLOL SUCC50 MG PO (11:23)
[2019-05-20] MEDS ORDERED: TORSEMIDE10 MG PO (11:24)
[2019-05-20 11:40] VITALS: BP 124/63
[2019-05-20 15:44] VITALS: BP 126/68
--- NOTE | 2019-05-20 15:55 | NUR ---
Assumed care approx. 0700 this AM. Pt noted to be oriented to person and that he is in the hospital. Pt complains of no pain, nausea or vomiting. Pt up to chair this afternoon. No new complaints. Pt hopeful for dischare today or tomorrow. No acute changes this shift. Will continue to monitor. Pt progressing toward plan of care goals.
--- NOTE | 2019-05-20 16:38 | NUR ---
SW reviewed chart and spoke with nursing and attending physician. Pt is progressing towards goals for discharge. [facility] can accept pt tomorrow. Wheelchair van transportation scheduled for 1400 tomorrow per facility's arrangements. JESUS spoke with pt's via phone to provide update. Pt's will be at bedside at time of discharge. Chart copy will need to be completed. Final discharge orders/summary will need to be faxed to [facility]. Nursing will need to call report. SW is available to assist should needs arise. [facility]--
[2019-05-20 20:30] VITALS: BP 132/65
[2019-05-21 04:34] VITALS: BP 140/62
[2019-05-21 05:53] LABS: HEMATOCRIT 28.8 % (42.0-52.0); MCH 26.1 pg (26.0-34.0); MCHC 31.4 g/dL (28.0-37.0); MCV 83.3 fL (80.0-100.0); RBC 3.46 mil/uL (4.50-6.00); RDW 19.1 % (10.5-14.5); WBC 8.1 thou/uL (4.0-11.0)
--- NOTE | 2019-05-21 06:06 | NUR ---
PT SHOULD DC TODAY TO [facility]. PT UP WITH X1 ASSIST AND GAIT BELT. PT CAN BE IMPULSIVE AND WANTS TO GET UP WITHOUT ASSIST. BEAUTY CULTURIST APPRENTICE WALKED PT AROUND UNIT AT 0300, THEN PT BACK TO BED. NO OTHER ISSUES.
[2019-05-21 07:51] VITALS: BP 119/65
[2019-05-21 11:42] VITALS: BP 124/56
--- NOTE | 2019-05-21 14:26 | NUR ---
PATIENT DISCHARGED AT THIS TIME TO [facility]. HE IS IN GOOD SPIRITS. FAMILY MEMBER HERE WITH HIM. HE IS NOT IN PAIN AT TIME OF DISCHARGE AND ALSO VSS.
--- NOTE | 2019-05-23 17:09 | PATH ---
[facility] [place] [address] PATHOLOGY RPT PROCEDURE Name: CHERYL VILLALTA Room #: 361-P DIS IN M.R.#: [id number] Admission: 05/16/19 Date of : 34 Discharge: 05/21/19 Report #: [id number] Path Case #: [id number] [facility] Accession Number: [id number] . 01 Material submitted: . PART A: cardia - POLYP IN CARDIA OF STOMACH PART B: rectum - RECTAL POLYP . 01 Clinical history: . 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 02 Diagnosis: A. Polyp in cardia of stomach, endoscopic biopsy: - Compatible with a hyperplastic polyp. - Negative for dysplasia. . B. Polyps, rectal, endoscopic biopsy: - Hyperplastic polyps, multiple. - Negative for dysplasia. (IUV:tiki; 05/23/2019) QMS 05/23/2019 1401 Local . 02 Electronically signed: . Roz Bojorquez MD, Pathologist NPI- [id number] . 01 Gross description: . A. The specimen is received in formalin, labeled "Cheryl Villalta, polyp in cardia of stomach". Received is a segment of pale gonzalez soft tissue measuring 0.8 cm in maximum dimensions. The surgical margin is inked and the segment is bisected. The specimen is submitted entirely in cassette A1. . B. The specimen is received in formalin, labeled "Cheryl Villalta, rectal polyps". Received are two segments of pale gonzalez soft tissue measuring 0.3 cm each in maximum dimensions. The specimen is submitted entirely in cassette B1. (CAA; 05/20/2019) QAC/QAC 05/23/2019 1400 Local . 02 Pathologist provided ICD-10: K62.1, K31.9, K57.92, K64.9 . 02 CPT . [address] [address] PATHOLOGY RPT PROCEDURE Name: CHERYL VILLALTA Room #: 361-P [facility] IN M.R.#: [id number] Admission: 05/16/19 Date of : 34 Discharge: 05/21/19 Report #: [id number] Path Case #: [id number] Specimen Comment: A courtesy copy of this report has been sent to [phone], [phone] Specimen Comment: [phone] Specimen Comment: Report sent to / DR HARGROVE Performed at: [address], [place] [id number] MD Dallas Ennis MD Phone: [phone] Performed at: [address] [id number] MD Roz Bojorquez MD Phone: [phone]
== END 2019-05-21 14:03 | DRG 378 ==
LOC: 3W 13:57
PROVIDERS: Internal Medicine Geriatric Medicine; Nurse Practitioner Adult Health; ADMIT Internal Medicine
DX: K31.811 Angiodysplasia of stomach and duodenum with bleeding (principal); N17.9 Acute kidney failure, unspecified; K76.6 Portal hypertension; D50.9 Iron deficiency anemia, unspecified; Z86.73 Personal history of transient ischemic attack (TIA), and cerebral infarction without residual deficits; F03.90 Unspecified dementia, unspecified severity, without behavioral disturbance, psychotic disturbance, mood disturbance, and anxiety; E78.5 Hyperlipidemia, unspecified; E11.51 Type 2 diabetes mellitus with diabetic peripheral angiopathy without gangrene; I25.10 Atherosclerotic heart disease of native coronary artery without angina pectoris; I71.4 Abdominal aortic aneurysm, without rupture; G89.29 Other chronic pain; M54.9 Dorsalgia, unspecified; I65.29 Occlusion and stenosis of unspecified carotid artery; K57.30 Diverticulosis of large intestine without perforation or abscess without bleeding; K64.4 Residual hemorrhoidal skin tags; E11.22 Type 2 diabetes mellitus with diabetic chronic kidney disease; R00.0 Tachycardia, unspecified; N18.9 Chronic kidney disease, unspecified; I12.9 Hypertensive chronic kidney disease with stage 1 through stage 4 chronic kidney disease, or unspecified chronic kidney disease; E78.00 Pure hypercholesterolemia, unspecified; G47.33 Obstructive sleep apnea (adult) (pediatric); K62.1 Rectal polyp; K31.89 Other diseases of stomach and duodenum; Z85.46 Personal history of malignant neoplasm of prostate; Z90.49 Acquired absence of other specified parts of digestive tract; Z80.0 Family history of malignant neoplasm of digestive organs; Z88.8 Allergy status to other drugs, medicaments and biological substances; Z86.718 Personal history of other venous thrombosis and embolism
CPT/HCPCS: 10779; 10879; 70005

== ENCOUNTER 2019-10-07 09:59 | Inpatient (IN) | payer OTHER ==
[~2019-10-07] VITALS: Ht 175.3 cm; Wt 97.5 kg
[~2019-10-07 09:59] MED LIST changes: +METOPROLOL SUCC50 MG PO; +TORSEMIDE10 MG PO; +VITAMIN B-125000 MCG PO
[2019-10-07 10:02] VITALS: BP 181/94
[2019-10-07 10:37] LABS: ABSOLUTE NEUTROPHILS 5.4 thou/uL (1.4-8.2); BASOPHILS 0.7 % (0.0-2.0); EOSINOPHILS 5.8 % (0.0-3.0); HEMOGLOBIN 13.6 gm/dL (14.0-18.0); LYMPHOCYTES 18.4 % (24.0-44.0); MCH 32.9 pg (26.0-34.0); MCV 96.8 fL (80.0-100.0); MONOCYTES 9.2 % (1.0-8.0); PLATELET COUNT 196 thou/uL (150-400); POLYS 65.9 % (36.0-66.0); RBC 4.13 mil/uL (4.50-6.00); RDW 14.6 % (10.5-14.5); WBC 8.2 thou/uL (4.0-11.0)
[2019-10-07 10:55] LABS: ANION GAP 12 mmol/L (7-16); BUN 25 mg/dL (7-18); CHLORIDE 99 mmol/L (98-107); CO2 22 mmol/L (21-32); CREATININE 2.1 mg/dL (0.7-1.3); GLUCOSE 191 mg/dL (74-106); POTASSIUM 4.4 mmol/L (3.5-5.1); SODIUM 133 mmol/L (136-145)
[2019-10-07 11:02] LABS: ALBUMIN 3.6 g/dL (3.4-5.0); SALICYLATE < 2.8 mg/dL (2.8-20.0); SGOT 23 U/L (15-37); SGPT 24 U/L (30-65); TOTAL BILIRUBIN 0.4 mg/dL (0.2-1.0); TOTAL PROTEIN 7.6 g/dL (6.4-8.2)
[2019-10-07] MEDS ORDERED: ASPIR 8181 M1 PO (11:37)
[2019-10-07] MEDS ORDERED: BENTYL 10 MG CA10 M1 PO (11:37)
[2019-10-07] MEDS ORDERED: IRBESARTAN-HCT1 EACH PO (11:38)
[2019-10-07] MEDS ORDERED: FUROSEMIDE 20 M20 M1 PO (11:38)
[2019-10-07] MEDS ORDERED: LOVASTATIN 20 M20 MG PO (11:58)
[2019-10-07] MEDS ORDERED: VITAMIN B-125000 MCG PO (11:59)
[2019-10-07 14:16] VITALS: BP 156/87
[2019-10-07 14:48] VITALS: BP 156/87
[2019-10-07 15:45] VITALS: BP 163/82; BP 173/95
--- NOTE | 2019-10-07 16:29 | EKG ---
[facility] [place] [address] ELECTROCARDIOGRAM REPORT Name: CHERYL VILLALTA Room #: 451-P ADM IN M.R.#: [id number] Admission: 10/07/19 Attend Phys: Gunnar Duarte MD Discharge: Date of : 34 Report #: [id number] THIS REPORT FOR: cc: Phill Monaco MD, Christopher B. MD Lundgren,Karlo Thomsno MD [facility] ~ THIS REPORT FOR: //name// [facility] ED Test Date: 2019-10-07 Test Time: 10:38:12 Pat Name: CHERYL VILLALTA Department: Room: [facility] Gender: M Engraver Wood: kf : 1935 Requested By: Irasema Herrera Order Number: [id number] MD: Karlo Hunter Measurements Intervals [place] Rate: 88 P: 12 MA: 192 QRS: -51 QRSD: 114 T: 40 QT: 384 QTc: 465 Interpretive Statements Sinus rhythm Incomplete RBBB and LAFB Compared to ECG 05/17/2019 14:06:47 Premature ventricular complexes are no longer present Electronically Signed On 10-07-2019 16:29:41 CDT by Karlo Hunter [email or web address] <ELECTRONICALLY SIGNED> By: Karlo Hunter MD, [facility] 10/07/19 1629 1038 1038 Karlo Hunter MD, [facility] /EPI
[2019-10-07 19:44] VITALS: BP 147/75
[2019-10-08 10:00] VITALS: BP 163/55
[2019-10-08 10:51] LABS: ABSOLUTE NEUTROPHILS 5.7 thou/uL (1.4-8.2); BASOPHILS 0.5 % (0.0-2.0); EOSINOPHILS 3.6 % (0.0-3.0); HEMATOCRIT 39.2 % (42.0-52.0); HEMOGLOBIN 13.1 gm/dL (14.0-18.0); LYMPHOCYTES 16.6 % (24.0-44.0); MCH 33.1 pg (26.0-34.0); MCHC 33.5 g/dL (28.0-37.0); MCV 98.8 fL (80.0-100.0); MONOCYTES 7.4 % (1.0-8.0); PLATELET COUNT 172 thou/uL (150-400); POLYS 71.9 % (36.0-66.0); RBC 3.96 mil/uL (4.50-6.00); RDW 14.7 % (10.5-14.5); WBC 7.9 thou/uL (4.0-11.0)
[2019-10-08 11:06] LABS: ALBUMIN 3.4 g/dL (3.4-5.0); CALCIUM 8.3 mg/dL (8.5-10.1); CREATININE 1.9 mg/dL (0.7-1.3); MAGNESIUM 1.7 mg/dL (1.8-2.4); POTASSIUM 3.9 mmol/L (3.5-5.1); TOTAL BILIRUBIN 0.3 mg/dL (0.2-1.0)
[2019-10-08] MEDS ORDERED: METOPROLOL SUCC50 MG PO (14:38)
[2019-10-08] MEDS ORDERED: TORSEMIDE10 MG PO (14:38)
[2019-10-08] MEDS ORDERED: GLIPIZIDE5 MG PO (14:40)
[2019-10-08 15:03] VITALS: BP 163/55
[2019-10-08 15:05] VITALS: BP 165/87
[2019-10-08] MEDS ORDERED: FENOFIBRATE160 MG PO (15:17)
[2019-10-08] MEDS ORDERED: MAGNESIUM250 M1 PO (15:17)
[2019-10-08 15:32] VITALS: BP 165/87
== END 2019-10-08 18:05 | disposition home health service (06) | DRG 918 ==
LOC: ER 09:59 → EROBS 12:01 → 4W 15:59
PROVIDERS: Internal Medicine; Student in an Organized Health Care Education/Training Program; ADMIT Hospitalist; ATTEND Hospitalist
DX: T38.3X1A Poisoning by insulin and oral hypoglycemic [antidiabetic] drugs, accidental (unintentional), initial encounter (principal); I13.0 Hypertensive heart and chronic kidney disease with heart failure and stage 1 through stage 4 chronic kidney disease, or unspecified chronic kidney disease; N17.9 Acute kidney failure, unspecified; T43.8X1A Poisoning by other psychotropic drugs, accidental (unintentional), initial encounter; T39.011A Poisoning by aspirin, accidental (unintentional), initial encounter; T43.221A Poisoning by selective serotonin reuptake inhibitors, accidental (unintentional), initial encounter; M19.90 Unspecified osteoarthritis, unspecified site; K21.9 Gastro-esophageal reflux disease without esophagitis; I25.10 Atherosclerotic heart disease of native coronary artery without angina pectoris; E11.51 Type 2 diabetes mellitus with diabetic peripheral angiopathy without gangrene; G47.33 Obstructive sleep apnea (adult) (pediatric); I50.9 Heart failure, unspecified; N18.9 Chronic kidney disease, unspecified; H54.8 Legal blindness, as defined in USA; E11.22 Type 2 diabetes mellitus with diabetic chronic kidney disease; F03.90 Unspecified dementia, unspecified severity, without behavioral disturbance, psychotic disturbance, mood disturbance, and anxiety; E11.649 Type 2 diabetes mellitus with hypoglycemia without coma; N18.3 Chronic kidney disease, stage 3 (moderate); E66.9 Obesity, unspecified; Z95.820 Peripheral vascular angioplasty status with implants and grafts; Z85.46 Personal history of malignant neoplasm of prostate; Z95.5 Presence of coronary angioplasty implant and graft; I25.2 Old myocardial infarction; Z86.73 Personal history of transient ischemic attack (TIA), and cerebral infarction without residual deficits; Z90.49 Acquired absence of other specified parts of digestive tract; Z98.41 Cataract extraction status, right eye; Z09 Encounter for follow-up examination after completed treatment for conditions other than malignant neoplasm; Z86.718 Personal history of other venous thrombosis and embolism; Z86.711 Personal history of pulmonary embolism; Z88.8 Allergy status to other drugs, medicaments and biological substances; Z87.891 Personal history of nicotine dependence; Y92.89 Other specified places as the place of occurrence of the external cause; Z68.31 Body mass index [BMI] 31.0-31.9, adult; Z79.899 Other long term (current) drug therapy
CPT/HCPCS: 10045

== ENCOUNTER → 2020-02-24 | Outpatient (CLI) | payer OTHER ==
[~2020-02-24] MED LIST changes: +ACIDOPHILUS1 EAC4 PO; +AMIODARONE HCL400 MG PO; +ASPIR 8181 M1 PO; +BENTYL 10 MG CA10 M1 PO; +CARVEDILOL3.125 MG PO; +DEMADEX20 MG PO; +ELIQUIS2.5 MG PO; +ESCITALOPRAM OX10 MG PO; +FUROSEMIDE 20 M20 M1 PO; +GLIPIZIDE5 MG PO; +MAGNESIUM250 M1 PO; +METOPROLOL SUC100 MG PO; +SODIUM BICARBO650 M3 PO; +VANCOMYCIN HCL125 MG PO
== END ==
LOC: SJCVCIMAG 08:48
PROVIDERS: ATTEND Internal Medicine Cardiovascular Disease
DX: I08.3 Combined rheumatic disorders of mitral, aortic and tricuspid valves (principal); I82.411 Acute embolism and thrombosis of right femoral vein; I82.431 Acute embolism and thrombosis of right popliteal vein; I11.9 Hypertensive heart disease without heart failure; I71.4 Abdominal aortic aneurysm, without rupture; I42.8 Other cardiomyopathies; Z79.899 Other long term (current) drug therapy; Z95.828 Presence of other vascular implants and grafts; Z87.891 Personal history of nicotine dependence

== ENCOUNTER → 2020-02-27 | Outpatient (CLI) | payer OTHER ==
[~2020-02-27] MED LIST changes: -ACIDOPHILUS1 EAC4 PO; -CARVEDILOL3.125 MG PO; -DEMADEX20 MG PO; -ESCITALOPRAM OX10 MG PO; -METOPROLOL SUC100 MG PO; -SODIUM BICARBO650 M3 PO; -VANCOMYCIN HCL125 MG PO
== END ==
LOC: LAB 11:54
PROVIDERS: ATTEND Internal Medicine Cardiovascular Disease
DX: Z01.812 Encounter for preprocedural laboratory examination (principal); Z20.828 Contact with and (suspected) exposure to other viral communicable diseases

== ENCOUNTER 2020-02-28 14:15 | Inpatient (IN) | payer OTHER ==
[~2020-02-28] VITALS: Ht 152.4 cm; Wt 98.4 kg
[~2020-02-28 14:15] MED LIST changes: -AMIODARONE HCL400 MG PO; -ELIQUIS2.5 MG PO
[2020-02-28 14:23] VITALS: BP 96/64
[2020-02-28 17:04] LABS: ABSOLUTE NEUTROPHILS 9.1 thou/uL (1.4-8.2); BASOPHILS 0.5 % (0.0-2.0); EOSINOPHILS 0.4 % (0.0-3.0); HEMATOCRIT 36.4 % (42.0-52.0); LYMPHOCYTES 9.3 % (24.0-44.0); MCH 33.3 pg (26.0-34.0); MCHC 32.8 g/dL (28.0-37.0); MCV 101.4 fL (80.0-100.0); MONOCYTES 6.5 % (1.0-8.0); PLATELET COUNT 225 thou/uL (150-400); POLYS 83.3 % (36.0-66.0); RBC 3.59 mil/uL (4.50-6.00); RDW 14.8 % (10.5-14.5); WBC 10.9 thou/uL (4.0-11.0)
[2020-02-28 17:16] LABS: ANION GAP 11 mmol/L (7-16); BUN 48 mg/dL (7-18); CALCIUM 9.1 mg/dL (8.5-10.1); CHLORIDE 100 mmol/L (98-107); CO2 23 mmol/L (21-32); CREATININE 3.8 mg/dL (0.7-1.3); GLUCOSE 149 mg/dL (74-106); POTASSIUM 5.5 mmol/L (3.5-5.1); SODIUM 134 mmol/L (136-145)
[2020-02-28 17:26] LABS: ALBUMIN 3.7 g/dL (3.4-5.0); LIPASE 125 U/L (73-393); SGOT 30 U/L (15-37); SGPT 34 U/L (30-65); TOTAL BILIRUBIN 0.7 mg/dL (0.2-1.0); TOTAL PROTEIN 7.6 g/dL (6.4-8.2); TROPONIN-I <0.06 ng/mL (<0.06)
[2020-02-28 20:30] VITALS: BP 116/77
[2020-02-28] MEDS ORDERED: AMIODARONE HCL400 MG PO (20:31)
[2020-02-28] MEDS ORDERED: NAMENDA 5 MG TAB5 M1 PO (20:32)
[2020-02-28] MEDS ORDERED: ELIQUIS2.5 MG PO (20:33)
[2020-02-28 20:37] VITALS: BP 99/64
[2020-02-28 21:14] VITALS: BP 105/78
[2020-02-29 05:46] LABS: HEMATOCRIT 36.5 % (42.0-52.0); HEMOGLOBIN 11.8 gm/dL (14.0-18.0); MCH 32.7 pg (26.0-34.0); MCHC 32.4 g/dL (28.0-37.0); MCV 100.9 fL (80.0-100.0); RBC 3.61 mil/uL (4.50-6.00); RDW 14.4 % (10.5-14.5)
[2020-02-29 05:51] LABS: CALCIUM 8.4 mg/dL (8.5-10.1); CREATININE 4.1 mg/dL (0.7-1.3); MAGNESIUM 2.1 mg/dL (1.8-2.4); POTASSIUM 5.6 mmol/L (3.5-5.1)
--- NOTE | 2020-02-29 07:22 | EKG ---
[facility] [address] [place] [facility] [place] [address] ELECTROCARDIOGRAM REPORT Name: CHERYL VILLALTA Room #: 454-P ADM IN M.R.#: [id number] Admission: 02/28/20 Attend Phys: René Soria MD Discharge: Date of : 34 Report #: [id number] THIS REPORT FOR: cc: Phill Monaco MD, Christopher B. MD Santiago,Rodolfo [facility] ~ THIS REPORT FOR: //name// [facility] ED Test Date: 2020-02-28 Test Time: 17:06:13 Pat Name: CHERYL VILLALTA Department: Room: 454 Gender: M Surgical Services Coordinator: cris : 1935 Requested By: Noé Valente Order Number: [id number] MD: Rodolfo Pitts Measurements Intervals [place] Rate: 111 P: 83 UT: 156 QRS: -42 QRSD: 153 T: -8 QT: 372 QTc: 506 Interpretive Statements Sinus tachycardia RBBB and LAFB Inferior infarct, old Lateral infarct, acute Compared to ECG 10/07/2019 10:38:12 Myocardial infarct finding now present Sinus rhythm no longer present Electronically Signed On 02-29-2020 7:22:10 GATE CUTTER by Rodolfo Pitts [email or web address] <ELECTRONICALLY SIGNED> By: Rodolfo Pitts MD, FACC 02/29/20 0722 170 170 Rodolfo Pitts MD, FAC /EPI
[2020-02-29 08:05] VITALS: BP 111/81
[2020-02-29] MEDS ORDERED: METOPROLOL SUC100 MG PO (08:28)
[2020-02-29] MEDS ORDERED: CARVEDILOL3.125 MG PO (08:29)
[2020-02-29] MEDS ORDERED: AMARYL2 MG PO (08:30)
[2020-02-29] MEDS ORDERED: FUROSEMIDE 20 M20 M1 PO (08:32)
[2020-02-29] MEDS ORDERED: ESCITALOPRAM OX10 MG PO (08:33)
--- NOTE | 2020-02-29 11:32 | NUR ---
PT CARE ASSUMED AT 0700. A&Ox4 WITH FORGETFUL EPISODES. PT UP AT [place] WITH SOB. IV PATENT WITH NO REDNESS OR EDEMA, FLUIDS INFUSING. CREATININE AT 4.1. NEPHROLOGY CONSULTED. VITALS ATABLE. ACHS. PERSONAL CANE IN ROOM. PT/OT EVAL TODAY. STOOL COLLECTED. PENDING RESULTS. ISOLATION FOR PENDING C-DIFF. FALL PROTOCOL IN PLACE. GI CONSULTED. WILL CONTINUE TO MONITOR.
--- NOTE | 2020-02-29 12:20 | NUR ---
Case opened to follow for dc planning. Pt is known to cm from previous admissions. Polishing Machine Operator Helper spoke with his Destiny and she indicates that [facility] No steps and currently no HH or private duty due to the pandemic. Their dtr in law is the liason for [facility] if needed at mt. He uses a cane in the home and a rwalker when going out. She does the driving, errands and IADLs. She is hoping he will be able to return home with outpt f/u. His pcp is Dr. Stan Monaco. The pt is being seen by Renal and GI. Will follow along should Hh be indicated at dc.
--- NOTE | 2020-02-29 14:27 | NUR ---
CARE TEAM INDICATED THAT PT IS TO BE TRANSFERED TO TELE ROOM 200 THIS AFTERNOON. NURSE NOTIFIED PT'S SPOUSE. CM TO FOLLOW INDICATED WITH DC PLANNING.
--- NOTE | 2020-02-29 14:42 | NUR ---
FAXED REFERRAL TO [facility] PT ON SERVICE WITH THEM IN THE PAST SPOKE WITH ELAN IN INTAKE THEY CAN ACCEPT.
--- NOTE | 2020-02-29 14:54 | NUR ---
VAT CONSULTED FOR PIV PLACEMENT. THIS RN ATTEMPTED X2 RIGHT HAND. NO VESSELS VISUALIZED, APPROPRIATE FOR CANNULATION, WITH US, IN EITHER FOREARM. SECOND NURSE, FEI RAMIREZ, PLACED RIGHT AC, 22X1IN PIV, USING US GUIDANCE, ON SECOND ATTEMP.
[2020-02-29 16:58] VITALS: BP 113/74
--- NOTE | 2020-02-29 17:36 | NUR ---
PT TRANSFERED FROM [facility] IN STABLE CONDITION. ACCOMPANIED BY THE . ALERT AND ORIENTED. CONTACT ISILATION ENFORCED. NEW ORDERS NOTED. ST ON TELE. FALL PRECAUTION IN PLACE. NO CONCERNS AT THIS TIME.
[2020-02-29 19:20] VITALS: BP 108/66
[2020-02-29 23:37] VITALS: BP 112/63
[2020-03-01 03:25] VITALS: BP 118/72
[2020-03-01 03:30] LABS: URINE BILIRUBIN NEGATIVE (Negative); URINE BLOOD NEGATIVE (Negative); URINE CLARITY CLEAR; URINE COLOR YELLOW; URINE GLUCOSE-RANDOM* NEGATIVE (Negative); URINE KETONES NEGATIVE (Negative); URINE LEUKOCYTES-REFLEX NEGATIVE (Negative); URINE NITRITE-REFLEX NEGATIVE (Negative); URINE PROTEIN (DIPSTICK) 1+ (Negative); URINE UROBILINOGEN 0.2 E.U./dl (0.2-1.0)
[2020-03-01 03:41] LABS: BACTERIA-REFLEX 1-9 Few /HPF (None Seen); CRYSTALS None Seen /LPF (None Seen); HYALINE CASTS 0-3 Few /LPF (None Seen); MUCUS 0-3 Light strn/LPF (None Seen); SQUAMOUS 0-3 Few /LPF (0-3); URINE RBC 0-2 Rare /HPF (0-2); URINE WBC-REFLEX 0-5 Rare /HPF (0-5)
[2020-03-01 06:31] LABS: ALBUMIN 3.3 g/dL (3.4-5.0); CALCIUM 7.6 mg/dL (8.5-10.1); CREATININE 3.7 mg/dL (0.7-1.3); PHOSPHORUS 4.4 mg/dL (2.5-4.9); POTASSIUM 4.3 mmol/L (3.5-5.1)
[2020-03-01 07:19] VITALS: BP 117/77
[2020-03-01 12:24] VITALS: BP 121/89
[2020-03-01 14:14] LABS: HEMATOCRIT 34.7 % (42.0-52.0); HEMOGLOBIN 11.4 gm/dL (14.0-18.0); MCH 33.4 pg (26.0-34.0); MCHC 32.7 g/dL (28.0-37.0); MCV 102.2 fL (80.0-100.0); RBC 3.4 mil/uL (4.50-6.00); RDW 14.4 % (10.5-14.5); WBC 8.4 thou/uL (4.0-11.0)
[2020-03-01 16:21] VITALS: BP 119/87
--- NOTE | 2020-03-01 17:16 | NUR ---
ASSESSMENT CHARTED. PT ALERT AND ORIENTED. VSS. REPORT HAVING MID ABD PAIN. PRN PAIN MED GIVEN WITH PARTILA RELIEF. SOB NOTED WITH ACTIVITY. CONTACT ISOLATION MAINTAINED. NPO AFTER MIDNIGHT FOR HIMANSHU SCHEDULED IN AM. FALL PRECAUTION IN PLACE. NO CONCERNS AT THIS TIME.
[2020-03-01 20:54] VITALS: BP 123/90
--- NOTE | 2020-03-02 01:04 | NUR ---
PATIENTS CARES WERE ASSUMED AT SHIFT CHANGE. PATIENT WAS ASSESSED AND MEDS WERE PASSED.THIS PATIENT IS BLIND AND TRAYS NEED TO BE SET UP IN CLOCK FASHION.PATIENT ALL SO MUST BE TOLD HOW MANY PILLS HE IS TAKING DUE TO HIS ANXIETY OF THE LOSE OF PILLS. THE BED IS IN A LOW AND LOCKED POSITION.
[2020-03-02 02:38] VITALS: BP 125/80
--- NOTE | 2020-03-02 03:24 | NUR ---
PATIENT IS TRANSFER FROM CCU.PATIENT AOX4 MAKES NEEDS KNOWN. PATIENT IS NPO SINCE MIDNIGHT. PATIENT AMBULATES TO THE BATHROOM WITH STEADY GAITS. FALL PRECAUTION IN PLACE. NO BOWEL MOVEMENT THIS SHIFT. PATIENT IN BED ASLEEP AT THIS TIME BREATHING REGULAR AND UNLABOURED.
[2020-03-02 06:01] LABS: HEMATOCRIT 31.7 % (42.0-52.0); HEMOGLOBIN 10.5 gm/dL (14.0-18.0); MCH 33.2 pg (26.0-34.0); MCHC 33.1 g/dL (28.0-37.0); MCV 100.4 fL (80.0-100.0); RBC 3.16 mil/uL (4.50-6.00); RDW 14.2 % (10.5-14.5); WBC 6.1 thou/uL (4.0-11.0)
[2020-03-02 07:13] LABS: ALBUMIN 3.4 g/dL (3.4-5.0); CREATININE 3.6 mg/dL (0.7-1.3); PHOSPHORUS 4.6 mg/dL (2.5-4.9); POTASSIUM 3.8 mmol/L (3.5-5.1)
[2020-03-02 07:58] VITALS: BP 114/79
[2020-03-02 08:04] VITALS: BP 114/79
--- NOTE | 2020-03-02 14:22 | TEE ---
[facility] [place] [address] TRANSESOPHAGEAL ECHOCARDIOGRAM Name: CHERYL VILLALTA Room #: 449-I ADM IN M.R.#: [id number] Admission: 02/28/20 Attend Phys: Dorothy Pacheco MD Discharge: Date of : 34 Report #: [id number] THIS REPORT FOR: cc: Phill Monaco MD, Christopher B. MD Santiago, Patrick MD [facility] ~ APPROVED REPORT Study performed: 03/02/2020 12:00:51 EXAM: Transesophageal Echocardiogram Patient Location: [facility] Room #: 449 Status: routine BSA: 2.17 HR: 118 bpm BP: 113/85 mmHg Rhythm: Atrial Flutter Other Information Study Quality: Adequate Indications Atrial flutter/Cardioversion. Procedure After obtaining informed consent, patient underwent transesophageal echo in the Certification Technician Holding. Type of Sedation : Conscious Sedation Sedation was administered by FEI Monroy. Sedation was achieved intravenously with: Versed (3) Fentanyl (75) Transesophageal probe was inserted and advanced into esophagus without difficulty by Rodolfo Pitts MD. The HIMANSHU was performed with complications. Complication encountered: patients oxygen saturations dropped. Exam ended. Synchronized Cardioversion acheived with 50 Joules after 1 attempt(s). Rhythm following Synchronized Cardioversion: Normal Sinus Rhythm with PVCs Throughout the procedure, the blood pressure, pulse oximetry, cardiac rhythm, and rate were monitored. The patient tolerated the procedure without adverse effects. Recovery [facility] [address] [place] [address] TRANSESOPHAGEAL ECHOCARDIOGRAM Name: CHERYL VILLALTA Room #: 449-I [facility] IN ..#: [id number] Admission: 02/28/20 Attend Phys: Rosanna Meadows Discharge: Date of : 34 Report #: [id number] from conscious sedation was uneventful and vital signs were stable. Left Ventricle The left ventricle is normal size. Left ventricular hypertrophy. Right Ventricle Right ventricle was not visualized. Atria Biatrial enlargement. No thrombus is visualized in the left atrium or appendage. Aortic Valve The aortic valve was notl visualized. Mitral Valve The mitral valve is normal in structure. Moderate to severe mitral regurgitation Tricuspid Valve Tricuspid valve was no visualized. Pericardium There is no pericardial effusion. <Conclusion> Consent previously obtained. Timeout performed Previous ejection fraction by transthoracic echocardiogram of 20% Esophageal probe was advanced without difficulty Good views were obtained of the LA/FERNANDA, no obvious clots detected. LA moderately enlarged Upon continuation of the procedure patient desaturated for which the procedure was terminated. Upon withdrawal of the HIMANSHU oxygen saturation came back to normal. While still sedated and well oxygenated patient was successfully cardioverted to normal sinus rhythm with 50 J in a biphasic mode. Patient tolerated the procedure well. <ELECTRONICALLY SIGNED> By: Rodolfo Pitts MD, [facility] 03/02/201421 21 21 Rodolfo Pitts MD, [facility] /INF
--- NOTE | 2020-03-02 16:09 | NUR ---
RECIEVED PATIENT FROM ER AT APPROX. 1030. A&OX4, DENIES PAIN AND/OR DISTRESS. ADMITTED FOR LOWER GI BLEED; BMX2 WITH MINIMAL AMOUNT OF DANIEL BLOOD. GI PROVIDERS SAW THIS PATIENT AND ORDERED H/H FOR A.M. IF STABLE PATIENT WILL DISCHARGE TOMORROW. NS INFUSING ON L AC W NO ISSUES AT 100 MLS/HR. PATIENT IS INDEPENDENT AND STEADY. REQUEST FOR MEDICAL RECORDS SENT TO [facility]. EDUCATION AND HX COMPLETED FOR ADMISSION. VITALS REMAIN STABLE. VOICES NO OTHER NEEDS AT THIS TIME. WILL CONTINUE TO MONITOR AND FOLLOW PLAN OF CARE
--- NOTE | 2020-03-02 16:15 | NUR ---
ASSUMED CARE OF PATIENT THIS A.M. ASSESSMENT CHARTED. MEDICATIONS ADMINISTERED W SMALL SIP OF WATER PER CARDIOLOGY. HR THIS A.M. REMIANED AT HIGHER 120'S SUSTAINED. PROVIDER DECIDED TO PROCEED W SCHEDULED CARDIOVERSION. PATIENT WAS TAKEN DOWN THIS AFTERNOON AND HAD A SUCCESSFUL CARDIOVERSION. HR IS CURRENTLY 80 AND NSR. RENAL FX PANEL ORDERED. GI VISITED W PATIENT TODAY TO MONITOR GI BLEED AND CDIFF. LOOSE STOOLS X2 THIS DAY W SMALL AMOUNT AND NO ACTIVE BLEEDING NOTED. CONTINUING CARDIAC MONIOTRING AND IMPLEMENTING ORDERS NEEDED. FALL PRECAUTIONS IN PLACE. ON CC DIET. NO DISTRESS VOICED. PO ABX ADMINISTERED. WILL CONTINUE TO MONITOR AND FOLLOW PLAN OF CARE.
--- NOTE | 2020-03-02 16:32 | NUR ---
discussed during prime time, he will go for cardiac procedure then move to ccu. when ready to dc home, call [facility] [phone], fax dc orders to [phone]
[2020-03-02 19:56] VITALS: BP 115/53
[2020-03-02 20:58] VITALS: BP 97/41
[2020-03-03 00:05] VITALS: BP 125/73
--- NOTE | 2020-03-03 04:17 | NUR ---
Pt. rested quietly at intervals during the night when checked on during frequent rounds. He offers no complaints of pain or discomfort. Pt. wanted to get up in reclinder chair and he ambulated with stand by assisitance. He did refuse the chair alarm and demanded it not to be used. Call light within reach. He did have a episode of loose stools. Contact precautions in place for c-diff.
[2020-03-03 05:24] LABS: HEMATOCRIT 32.2 % (42.0-52.0); HEMOGLOBIN 10.6 gm/dL (14.0-18.0); MCH 33.5 pg (26.0-34.0); MCV 101.4 fL (80.0-100.0); RBC 3.18 mil/uL (4.50-6.00); RDW 14.7 % (10.5-14.5); WBC 6.1 thou/uL (4.0-11.0)
[2020-03-03 05:43] LABS: ALBUMIN 3.4 g/dL (3.4-5.0); CALCIUM 8.3 mg/dL (8.5-10.1); CREATININE 3.6 mg/dL (0.7-1.3); PHOSPHORUS 4.6 mg/dL (2.5-4.9)
[2020-03-03 07:19] VITALS: BP 116/66
--- NOTE | 2020-03-03 10:42 | NUR ---
Received awake on bed. Due medications given as prescribed, able to swallow meds w/o difficulty. On room air. Vital signs stable. On telemetry; no complains and signs of chest pain, crushing sensation and heaviness; a/p cardioversion 03/02. On carb controlled diet- tolerating well; no nausea, no vomiting and no abdominal pain. On blood sugar monitoring, taken and recorded accordingly; with sliding scale insulin. Maintained on isolation due to Cdiff- still having loose stools today. Continent of bowel and bladder, assisted in going to the toilet. With SL at L hand and R AC. Assited in ADLs. Pt seen and examined by CEMENT BASED MATERIALS PUMP TENDER Cardio his AM, adjusted oral. To continue monitoring patient.
[2020-03-03 15:55] VITALS: BP 124/69
[2020-03-03 19:29] VITALS: BP 112/54
--- NOTE | 2020-03-03 21:20 | NUR ---
Bed alarm sounded and as this nurse approached the room pt. was ambulating out of the room. Pt. came to a standstill and was confused. He was disoriented times four. He was also starting to get very weak. Pt. put in a wheelchair and placed in bed close to the nurses station. He was assessed (see reassment in poc). He was mumbling his words and not making any sense. A rapid response was called. VSS. Bed alarm is on.
[2020-03-03 21:25] VITALS: BP 130/62
[2020-03-03 21:52] LABS: HEMATOCRIT 32.2 % (42.0-52.0); HEMOGLOBIN 10.4 gm/dL (14.0-18.0); MCH 32.8 pg (26.0-34.0); MCHC 32.4 g/dL (28.0-37.0); MCV 101.4 fL (80.0-100.0); RBC 3.18 mil/uL (4.50-6.00); RDW 14.4 % (10.5-14.5)
[2020-03-03 21:58] LABS: CALCIUM 8.5 mg/dL (8.5-10.1); CREATININE 3.7 mg/dL (0.7-1.3)
--- NOTE | 2020-03-03 22:30 | NUR ---
Pt. is resting quietly in the bed and is more alert and oriented times three. He is requesting to go to the bathroom. Pt. ambulated to the bathroom with one assist and a gait belt. He did very well. Blanca ISSA came to see the patient. She also left message with with an update, but unable to reach. He is sinus rythmn on the monitor. Pt. offers no c/o pain or discomfort. Assisted back to the bed and bed alarm placeed on.
[2020-03-04 04:49] LABS: ALBUMIN 3.1 g/dL (3.4-5.0); CREATININE 3.3 mg/dL (0.7-1.3); PHOSPHORUS 3.6 mg/dL (2.5-4.9); POTASSIUM 3.8 mmol/L (3.5-5.1)
--- NOTE | 2020-03-04 04:55 | NUR ---
Pt's nurse activated VAMP PRESSER at 2129. This automatic typewriter inspector arrived to find pt with slurred speech, new confusion, and unable to follow simple directions. BS WNL and all vital signs normal at this time. Code stroke was activated. Pt down to CT scan with DATA ANALYTICS SPECIALIST and house builder @ 2144. RAQUEL Rios made aware of change in condition and orders received and carried out. Shortly later pt back to baseline without intervention.
[2020-03-04 08:21] VITALS: BP 123/66
--- NOTE | 2020-03-04 08:29 | NUR ---
Found pt. monitor sitting on his table next to the bed. He had removed the tele monitor. Attempted to repalce bacl onto pt, but he refused. Pt. educated on the importance of the monitor and he replied that he did not care. He also was starting to get a little agitated. Monitor left off and Blanca ISSA called and notified.
[2020-03-04 16:41] VITALS: BP 116/74
--- NOTE | 2020-03-04 19:13 | NUR ---
PT A&OX3, VSS, DENIES PAIN. PATIENT DID GET CONFUSED AROUND 1500, WAS ABLE TO REORIENT WITHOUT ISSUE. PATIENT TOLERATING DIET AND EATING ABOUT 80 PERCENT. NO SIGNS OF DISTRESS. WILL CONTINUE TO MONITOR.
[2020-03-04 19:30] VITALS: BP 158/71
[2020-03-05 05:15] LABS: ALBUMIN 3.2 g/dL (3.4-5.0); CALCIUM 8.4 mg/dL (8.5-10.1); PHOSPHORUS 3.2 mg/dL (2.5-4.9); POTASSIUM 3.6 mmol/L (3.5-5.1)
--- NOTE | 2020-03-05 07:14 | NUR ---
Assumed pt care at 1900.A/OX4 with confusion/forgetfulness noted but able to make needs known. Up with cane/GB. Denies pain on assessment. NSR on telemetry. Continent of B&B. Remains on special contact isolation,no diarrhea noted this shift. Fall precautions in place,needs reminders to call for help.
[2020-03-05 07:56] VITALS: BP 144/76
[2020-03-05 09:41] VITALS: BP 144/76
[2020-03-05] MEDS ORDERED: VANCOMYCIN HCL125 MG PO (11:34)
[2020-03-05] MEDS ORDERED: ACIDOPHILUS1 EAC4 PO (11:34)
[2020-03-05] MEDS ORDERED: SODIUM BICARBO650 M3 PO (11:34)
[2020-03-05] MEDS ORDERED: DEMADEX20 MG PO (11:34)
--- NOTE | 2020-03-05 12:37 | NUR ---
ASSUMED PT CARE THIS AM. PT VSS. PT FORGETFUL, GETS UP WITHOUT CALLING. INSTRUCTED TO GET UP WITH CANE AND CALL WHEN NEEDED. PT AGREEABLE BUT OCNTINUES TO GET UP WITHOUT ASSISTANCE. NO COMPLAINTS OF PAIN. IV PATENT. AT BEDSIDE. PT TO DISCHARGE HOME.
--- NOTE | 2020-03-05 13:32 | NUR ---
CARE TEAM INDICATED THAT PT IS MEDICALLY STABLE TO DC HOME THIS DAY WITH RESUMPTION OF HH SERVICES WITH [facility]. ORDERS FAXED. PT'S SPOUSE PROVIDED TRANSPORT HOME. NO OTHER CM INTERVENTION INDICATED. CASE CLOSED.
--- NOTE | 2020-03-05 13:42 | NUR ---
FAXED DC ORDERS/SUMMARY TO [facility] SPOKE WITH ELAN IN INTAKE SHE RECEIVED ORDERS AND WILL ARRANGE VISITS WITH PT.
--- NOTE | 2020-03-12 07:52 | EKG ---
[facility] [place] [address] ELECTROCARDIOGRAM REPORT Name: CHERYL VILLALTA Room #: 461-P [facility] IN M.R.#: [id number] Admission: 02/28/20 Attend Phys: Dorothy Pacheco MD Discharge: 03/05/20 Date of : 34 Report #: [id number] THIS REPORT FOR: cc: Phill Monaco MD, Christopher B. MD Santiago, Patrick MD [facility] ~ THIS REPORT FOR: //name// [facility] Test Date: 2020-02-29 Test Time: 10:57:58 Pat Name: CHERYL VILLALTA Department: Room: 454 P Gender: M Plc Engineer: GUILLERMO : 1935 Requested By: Herman Garcias Order Number: [id number] MD: Rodolfo Pitts Measurements Intervals [place] Rate: 112 P: 96 MT: 149 QRS: -42 QRSD: 163 T: -37 QT: 375 QTc: 512 Interpretive Statements Sinus tachycardia RBBB and LAFB Compared to ECG 02/28/2020 17:06:13 No significant change Electronically Signed On 02-29-2020 11:44:22 SOLE STAINER by Rodolfo Pitts [email or web address] <ELECTRONICALLY SIGNED> By: Rodolfo Pitts MD, [facility] 02/29/20 1144 1057 1057 Rodolfo Pitts MD, [facility] /EPI
--- NOTE | 2020-03-12 07:53 | EKG ---
[address] [place] [address] ELECTROCARDIOGRAM REPORT Name: PAWANCHERYL Stew Room #: 461-P [facility] IN .R.#: [id number] Admission: 02/28/20 Attend Phys: Dorothy Pacheco MD Discharge: 03/05/20 Date of : 34 Report #: [id number] [facility] Test Date: 2020-03-02 Test Time: 14:08:34 Pat Name: CHERYL VILLALTA Department: Room: [facility] I Gender: M Rn Informatics: Carla CHRISTINE : 1935 Requested By: Rodolfo Pitts Order Number: [id number] MD: Rodolfo Pitts Measurements Intervals [place] Rate: 80 P: -66 FL: 161 QRS: -29 QRSD: 128 T: 17 QT: 442 QTc: 510 Interpretive Statements NSR IVCD, consider atypical RBBB Compared to ECG 03/02/2020 08:48:31 Ectopic atrial rhythm now present Atrial fibrillation no longer present Electronically Signed On 03-02-2020 16:00:07 CHARGING CRANE OPERATOR by Rodolfo Pitts [email or web address] <ELECTRONICALLY SIGNED> By: Rodolfo Pitts MD, FACC 03/02/20 1600 1408 07 Rodolfo Pitts MD, [facility] /EPI
--- NOTE | 2020-03-12 07:53 | EKG ---
[address] [place] [employer] [address] ELECTROCARDIOGRAM REPORT Name: PAWANCHERYL Room #: 461-P [facility] IN .R.#: [id number] Admission: 02/28/20 Attend Phys: Dorothy Pacheco MD Discharge: 03/05/20 Date of : 34 Report #: [id number] [facility] Test Date: 2020-03-01 Test Time: 09:02:51 Pat Name: CHERYL VILLALTA Department: Room: 200 I Gender: M Breaker Layer: GUILLERMO : 1935 Requested By: Pattie Mcgraw Order Number: [id number] MD: Sushant Senior Measurements Intervals [place] Rate: 116 P: IN: QRS: -39 QRSD: 161 T: -3 QT: 372 QTc: 517 Interpretive Statements Sinustachycardia Right bundle branch block LAFB Compared to ECG 02/29/2020 10:57:58 No significant change Electronically Signed On 03-01-2020 10:50:25 CAD DETAILER by Ssuhant Senior [email or web address] <ELECTRONICALLY SIGNED> By: Sushant Senior MD 03/01/20 1050 D: 12901 1 Sushant Senior MD /AIDEN
--- NOTE | 2020-03-12 07:53 | EKG ---
[address] [address] ELECTROCARDIOGRAM REPORT Name: PAWANCHERYL Room #: 461-P [facility] IN ..#: [id number] Admission: 02/28/20 Attend Phys: Dorothy Pacheco MD Discharge: 03/05/20 Date of : 34 Report #: [id number] [facility] Test Date: 2020-03-02 Test Time: 08:48:31 Pat Name: CHERYL VILLALTA Department: Room: [facility] Gender: M Workshop Manager: GUILLERMO : 1935 Requested By: Pattie Mcgraw Order Number: [id number] MD: Ahmet Pimentel Measurements Intervals [place] Rate: 125 P: 0 MT: 204 QRS: -44 QRSD: 154 T: -17 QT: 375 QTc: 541 Interpretive Statements Afib/aflutter Compared to ECG 03/01/2020 16:15:35 Electronically Signed On 03-02-2020 10:47:32 MARKETING ANALYTICS ANALYST by Ahmet Pimentel [email or web address] <ELECTRONICALLY SIGNED> By: Ahmet Pimentel MD 03/02/20 1047 0848 7 Ahmet Pimentel MD /AIDEN
--- NOTE | 2020-03-12 07:53 | EKG ---
[address] [address] ELECTROCARDIOGRAM REPORT Name: PAWANCHERYL Mat[place]as Room #: 461-P [facility] IN ..#: [id number] Admission: 02/28/20 Attend Phys: Dorothy Pacheco MD Discharge: 03/05/20 Date of : 34 Report #: [id number] [facility] Test Date: 2020-03-01 Test Time: 16:15:35 Pat Name: CHERYL VILLALTA Department: Room: [facility] Gender: M Hearing Dog Trainer: Carla CHRISTINE : 1935 Requested By: Pattie Mcgraw Order Number: [id number] MD: Rodolfo Pitts Measurements Intervals [place] Rate: 112 P: 85 TN: 143 QRS: -38 QRSD: 145 T: 52 QT: 371 QTc: 507 Interpretive Statements Sinus tachycardia Right bundle branch block Compared to ECG 03/01/2020 09:02:51 Left anterior fascicular block no longer present Electronically Signed On 03-02-2020 7:31:37 MAGNAFLUX OPERATOR by Rodolfo Pitts [email or web address] <ELECTRONICALLY SIGNED> By: Rodolfo Pitts MD, [facility] 03/02/20 0731 14 14 Rodolfo Pitts MD, [facility] /EPI
--- NOTE | 2020-03-13 14:00 | HC ---
[facility] [place] [address] CONSULTATION Name: CHERYL VILLALTA Room #: 461-P [facility] IN M.R.#: [id number] Admission: 02/28/20 Attend Phys: Dorothy Pacheco MD Discharge: 03/05/20 Date of : 34 Report #: [id number] THIS REPORT FOR: cc: Phill Monaco MD, Christopher B. MD [place], Roxane S. DO ~ DATE OF SERVICE: 03/04/2020 NEUROLOGY CONSULTATION HISTORY OF PRESENT ILLNESS: patient is an 84-year-old male with vascular dementia. The patient was diagnosed by Dr. Monaco and the patient is now on memantine 5 mg twice a day. Apparently, the patient had an episode yesterday evening with slurred speech and confusion. He was unable to follow simple commands. Vital signs and blood sugar normal. Code stroke was activated. He was taken down for CT head and it was unremarkable. Today, the patient is at his baseline. He has had trouble with his memory for a year or so. His works in memory care and she considers him to be high functioning. The patient has no side effects from memantine 5 mg twice a day. He has been on this dose for over a year. The patient was admitted with abdominal pain and diagnosed with C. difficile colitis and acute on chronic renal disease. PAST MEDICAL HISTORY: Non-insulin dependent diabetes mellitus, hypertension, arthritis, gastroesophageal reflux, untreated sleep apnea, gastric ulcer disease, macular degeneration, coronary artery disease, peripheral vascular disease, and pulmonary embolus. PAST SURGICAL HISTORY: Tonsillectomy, prostatectomy, aortic stent placement, appendectomy, AAA stent placement, right cataract surgery, and cholecystectomy. MEDICATIONS: In the hospital, amiodarone 400 mg daily, Eliquis 2.5 mg b.i.d., torsemide 20 mg daily, sliding scale Humalog insulin, metoprolol 100 mg daily, pantoprazole 40 mg daily, sodium bicarbonate 650 mg b.i.d., and vancomycin 500 mg q.i.d. ALLERGIES: MORPHINE, HYDROCODONE, OXYCODONE, FENTANYL, MEPERIDINE, AND ACTOS. VITAL SIGNS: Temperature 36.8, pulse rate 65, respiratory rate 16, blood pressure 123/66, bed side pulse oximetry 96% on room air. [address] [address] CONSULTATION Name: CHERYL VILLALTA Room #: 1-[facility]#: [id number] Admission: 02/28/20 Attend Phys: Dorothy Pacheco MD Discharge: 03/05/20 Date of : 34 Report #: [id number] LABORATORY DATA: Hematology, white blood cell count 6, hemoglobin 10.4, hematocrit 32.2, and MCV 101.4. Chemistry: Sodium 139, potassium 3.8, chloride 104, carbon dioxide 22, BUN 46, creatinine 3.3, GFR 18, and glucose 93. Ammonia level is 29. TSH is 2.492. IMAGING: CT scan of the head, no acute intracranial process, moderate atrophy and chronic small vessel ischemic disease. NEURO EXAM: The patient thought that it was 03/11/2021. He knew he was in the hospital, but thought the name of the hospital was [facility]. He knows he lives in [place], [place]. Cranial nerves 2-12 are grossly intact. Motor exam demonstrates symmetrical strength in all 4 extremities with tone and bulk normal. Reflexes were trace. Plantar responses are flexor. Coordination demonstrates no evidence of dysmetria. IMPRESSION: This patient has dementia. This is either Alzheimer disease or vascular dementia. I have ordered a repeat B12 level. His TSH is normal. He is on memantine 5 mg twice a day. The effective dose of memantine is 10 mg twice a day, so I will increase the dose to 5 mg in the morning and 10 mg at night. It approximately 2 weeks, the dose should be increased to 10 mg twice a day and in the future, consideration should be given to adding donepezil. The patient's understands that in the evening and especially in new situations, the patient may become more confused. This is all an unfortunate part of having dementia. His told me that since he has been in the hospital, he has been in several different rooms and that has been confusing. I have no further suggestions at this point. Thank you for your kind referral of the patient. <ELECTRONICALLY SIGNED> By: Ade Jones DO 03/13/20 1400 1508 2359 Ade Jones DO /nt
== END 2020-03-05 13:15 | disposition home health service (06) | DRG 371 ==
LOC: ER 14:15 → 2N 19:26 → 4W 19:26 → 2N 19:26 → EROBS 19:26 → 4W 21:07 → 2N 02-29 15:37 → 4W 03-02 02:30
PROVIDERS: Emergency Medicine; Hospitalist; Internal Medicine Nephrology; Nurse Practitioner; Nurse Practitioner Family; ADMIT Hospitalist; ATTEND Hospitalist
PROC: 5A2204Z Restoration of Cardiac Rhythm, Single (ICD-10-PCS; principal; 2020-03-02)
PROC: B24BZZ4 Ultrasonography of Heart with Aorta, Transesophageal (ICD-10-PCS; principal; 2020-03-02)
DX: A04.72 Enterocolitis due to Clostridium difficile, not specified as recurrent (principal); N17.0 Acute kidney failure with tubular necrosis; I48.92 Unspecified atrial flutter; I13.0 Hypertensive heart and chronic kidney disease with heart failure and stage 1 through stage 4 chronic kidney disease, or unspecified chronic kidney disease; E87.1 Hypo-osmolality and hyponatremia; I42.9 Cardiomyopathy, unspecified; E87.2 Acidosis; K92.1 Melena; I69.354 Hemiplegia and hemiparesis following cerebral infarction affecting left non-dominant side; K59.00 Constipation, unspecified; E86.0 Dehydration; F03.90 Unspecified dementia, unspecified severity, without behavioral disturbance, psychotic disturbance, mood disturbance, and anxiety; E87.5 Hyperkalemia; I50.9 Heart failure, unspecified; E78.5 Hyperlipidemia, unspecified; G47.33 Obstructive sleep apnea (adult) (pediatric); E11.22 Type 2 diabetes mellitus with diabetic chronic kidney disease; E11.51 Type 2 diabetes mellitus with diabetic peripheral angiopathy without gangrene; H35.30 Unspecified macular degeneration; F32.9 Major depressive disorder, single episode, unspecified; H54.61 Unqualified visual loss, right eye, normal vision left eye; I71.4 Abdominal aortic aneurysm, without rupture; Z20.828 Contact with and (suspected) exposure to other viral communicable diseases; N18.32 Chronic kidney disease, stage 3b; I48.91 Unspecified atrial fibrillation; K21.9 Gastro-esophageal reflux disease without esophagitis; I25.10 Atherosclerotic heart disease of native coronary artery without angina pectoris; Z86.718 Personal history of other venous thrombosis and embolism; Z86.711 Personal history of pulmonary embolism; Z95.820 Peripheral vascular angioplasty status with implants and grafts; Z79.01 Long term (current) use of anticoagulants; Z85.46 Personal history of malignant neoplasm of prostate; Z90.49 Acquired absence of other specified parts of digestive tract; Z98.41 Cataract extraction status, right eye; Z88.8 Allergy status to other drugs, medicaments and biological substances; Z87.891 Personal history of nicotine dependence; Z88.6 Allergy status to analgesic agent; Z80.0 Family history of malignant neoplasm of digestive organs; Z86.010 Personal history of colon polyps; Z79.899 Other long term (current) drug therapy
CPT/HCPCS: 10040; 10045; 10081

== ENCOUNTER → 2020-03-09 | Outpatient (CLI) | payer OTHER ==
[~2020-03-09] MED LIST changes: +ACIDOPHILUS1 EAC4 PO; +AMIODARONE HCL400 MG PO; +CARVEDILOL3.125 MG PO; +DEMADEX20 MG PO; +ELIQUIS2.5 MG PO; +ESCITALOPRAM OX10 MG PO; +METOPROLOL SUC100 MG PO; +SODIUM BICARBO650 M3 PO; +VANCOMYCIN HCL125 MG PO
== END ==
LOC: SJCVC 09:54
PROVIDERS: ATTEND Nurse Practitioner
DX: I45.10 Unspecified right bundle-branch block (principal); R94.31 Abnormal electrocardiogram [ECG] [EKG]; I48.92 Unspecified atrial flutter; I25.10 Atherosclerotic heart disease of native coronary artery without angina pectoris; I48.91 Unspecified atrial fibrillation; I42.9 Cardiomyopathy, unspecified; I73.9 Peripheral vascular disease, unspecified; I82.401 Acute embolism and thrombosis of unspecified deep veins of right lower extremity; I71.4 Abdominal aortic aneurysm, without rupture; I12.9 Hypertensive chronic kidney disease with stage 1 through stage 4 chronic kidney disease, or unspecified chronic kidney disease; N18.9 Chronic kidney disease, unspecified; E78.00 Pure hypercholesterolemia, unspecified; A04.72 Enterocolitis due to Clostridium difficile, not specified as recurrent; R53.83 Other fatigue; K21.9 Gastro-esophageal reflux disease without esophagitis; Z79.899 Other long term (current) drug therapy; Z87.891 Personal history of nicotine dependence

== ENCOUNTER → 2020-05-24 | Outpatient (CLI) | payer OTHER | LOC: SJCVCIMAG 07:27 | PROVIDERS: ATTEND Internal Medicine Cardiovascular Disease | DX: I08.3 Combined rheumatic disorders of mitral, aortic and tricuspid valves (principal); I82.411 Acute embolism and thrombosis of right femoral vein; I82.431 Acute embolism and thrombosis of right popliteal vein; I77.89 Other specified disorders of arteries and arterioles; I11.9 Hypertensive heart disease without heart failure; R00.0 Tachycardia, unspecified; R94.31 Abnormal electrocardiogram [ECG] [EKG]; I45.2 Bifascicular block; I48.92 Unspecified atrial flutter; I25.10 Atherosclerotic heart disease of native coronary artery without angina pectoris; I65.23 Occlusion and stenosis of bilateral carotid arteries; I73.9 Peripheral vascular disease, unspecified; I71.4 Abdominal aortic aneurysm, without rupture; I27.82 Chronic pulmonary embolism; E11.51 Type 2 diabetes mellitus with diabetic peripheral angiopathy without gangrene; E78.00 Pure hypercholesterolemia, unspecified; G47.30 Sleep apnea, unspecified; Z90.49 Acquired absence of other specified parts of digestive tract; Z88.8 Allergy status to other drugs, medicaments and biological substances; Z79.899 Other long term (current) drug therapy; Z86.73 Personal history of transient ischemic attack (TIA), and cerebral infarction without residual deficits; Z86.16 Personal history of COVID-19; Z87.891 Personal history of nicotine dependence; Z82.49 Family history of ischemic heart disease and other diseases of the circulatory system ==

== ENCOUNTER → 2020-05-25 | Outpatient (CLI) | payer OTHER | LOC: LAB 05-24 14:28 | PROVIDERS: ATTEND Internal Medicine | DX: Z20.822 Contact with and (suspected) exposure to COVID-19 (principal) ==

== ENCOUNTER → 2020-05-29 | Outpatient (CLI) | payer OTHER ==
[~2020-05-29] VITALS: Ht 177.8 cm; Wt 95.3 kg
[~2020-05-29] MED LIST changes: +GLIMEPIRIDE4 MG PO; +SUPER THERAVIT1 EACH PO
[2020-05-29 07:09] VITALS: BP 114/72
--- NOTE | 2020-05-29 08:36 | TEE ---
[facility] [place] [address] TRANSESOPHAGEAL ECHOCARDIOGRAM Name: CHERYL VILLALTA Room #: REG [facility]#: [id number] Admission: 05/29/20 Attend Phys: Rodolfo Pitts MD, Discharge: Date of : 33 Report #: [id number] THIS REPORT FOR: cc: Phill Monaco MD, Christopher B. MD Santiago, Patrick MD [facility] ~ APPROVED REPORT Study performed: 05/29/2020 07:48:37 EXAM: Transesophageal Echocardiogram Patient Location: Out-Patient Status: routine BSA: 2.13 HR: 108 bpm BP: 112/70 mmHg Rhythm: Atrial Flutter Other Information Study Quality: Good Indications Aflutter/cardioversion. Procedure After obtaining informed consent, patient underwent transesophageal echo in the [employer]. Type of Sedation : Conscious Sedation Sedation was administered by FEI [place]ves. Sedation was achieved intravenously with: Versed (3) Fentanyl (50) Transesophageal probe was inserted and advanced into esophagus without difficulty by Rodolfo Pitts MD. Echo enhancement indication: R/O Septal defect. Echo enhancement agent administered: Agitated Saline The HIMANSHU was performed without complications. Synchronized Cardioversion acheived with 50 Joules after 1 attempt(s). Rhythm following Synchronized Cardioversion: Normal Sinus Rhythm Throughout the procedure, the blood pressure, pulse oximetry, cardiac rhythm, and rate were monitored. The patient tolerated the procedure without adverse effects. Recovery from conscious sedation was uneventful and vital signs were [facility] [address] [place] [address] TRANSESOPHAGEAL ECHOCARDIOGRAM Name: CHERYL VILLALTA Room #: REG [facility]#: [id number] Admission: 05/29/20 Attend Phys: Rodolfo Pitts, Discharge: Date of : 33 Report #: [id number] stable. Left Ventricle The left ventricle is normal size. Left ventricular hypertrophy. Left ventricular systolic function is severely decreased. LVEF is 25-30%. Right Ventricle The right ventricle is normal size. The right ventricular systolic function is normal. Atria Left atrium is dilated. No thrombus is visualized in the left atrium or appendage. No shunting noted with contrast bubble injection. The right atrium size is normal. Aortic Valve Aortic valve is calcified. Mild aortic regurgitation. Mitral Valve The mitral valve is normal in structure. Mild to moderate mitral regurgitation. Tricuspid Valve The tricuspid valve is normal in structure. Mild tricuspid regurgitation. Great Vessels Atherosclerotic plaque is present in the descending aorta. Pericardium There is no pericardial effusion. <Conclusion> Consent was obtained Timeout performed Baseline rhythm atrial flutter After proper sedation esophageal probe was advanced without difficulty Normal left ventricle size, mild LVH Ejection fraction 25-30%/global hypokinesis Moderate left atrial enlargement Left atrial appendage, moderate size, no obvious mass or clot detected Lipomatous interatrial septum [facility] [place] [address] TRANSESOPHAGEAL ECHOCARDIOGRAM Name: PAWANCHERYL Room #: REG [facility]#: [id number] Admission: 05/29/20 Attend Phys: Rodolfo Pitts, Discharge: Date of : 33 Report #: [id number] Tricuspid aortic valve, mildly calcified, no stenosis detected Mild/central mitral valve insufficiency Mild tricuspid valve insufficiency No evidence of ASD/VSD by color flowDoppler study No pericardial effusion Minimal aortic calcification Patient was a successfully cardioverted to NSR after 50 J in a biphasic mode Patient tolerated the procedure well Twelve-lead ECG pending <ELECTRONICALLY SIGNED> By: Rodolfo Pitts MD, FACC 05/29/2036 5 5 Rodolfo Pitts MD, FACC /INF
--- NOTE | 2020-05-29 14:12 | EKG ---
[place] [address] [facility] [place] [address] ELECTROCARDIOGRAM REPORT Name: PAWANCHERYL Room #: REG [facility]#: [id number] Admission: 05/29/20 Attend Phys: Rodolfo Pitts MD, Discharge: Date of : 33 Report #: [id number] [facility] Test Date: 2020-05-29 Test Time: 08:21:42 Pat Name: CHERYL VILLALTA Department: Room: Gender: M Metallographic Technician: GUILLERMO : 1935 Requested By: Rodolfo Pitts Order Number: [id number] MD: Rodolfo Pitts Measurements Intervals [place] Rate: 65 P: 80 OH: 262 QRS: -40 QRSD: 173 T: -11 QT: 485 QTc: 505 Interpretive Statements Sinus rhythm Prolonged OH interval RBBB and LAFB Compared to ECG 05/29/2020 07:35:42 First degree AV block now present Junctional tachycardia no longer present Electronically Signed On 05-29-2020 14:12:09 CONTROL SYSTEMS DESIGNER by Rodolfo Pitts [email or web address] <ELECTRONICALLY SIGNED> By: Rdoolfo Pitts MD, [facility] 05/29/20 1412 0 0 Rodolfo Pitts MD, [facility] /EPI
--- NOTE | 2020-05-29 14:12 | EKG ---
[place] [address] [facility] [place] [address] ELECTROCARDIOGRAM REPORT Name: PAWANCHERYL Room #: REG [facility]#: [id number] Admission: 05/29/20 Attend Phys: Rodolfo Pitts MD, Discharge: Date of : 33 Report #: [id number] [facility] Test Date: 2020-05-29 Test Time: 07:35:42 Pat Name: CHERYL VILLALTA Department: Room: Gender: M Lane Marker Installer: GUILLERMO : 1935 Requested By: Rodolfo Pitts Order Number: [id number] MD: Rodolfo Pitts Measurements Intervals [place] Rate: 113 P: OH: QRS: -56 QRSD: 177 T: -17 QT: 411 QTc: 564 Interpretive Statements Junctional tachycardia vs Atral flutter RBBB and LAFB Baseline wander in lead(s) V6 Compared to ECG 03/02/2020 14:08:34 Left anterior fascicular block now present Electronically Signed On 05-29-2020 14:12:01 RETAIL PRESENTATION SPECIALIST by Rodolfo Pitts [email or web address] <ELECTRONICALLY SIGNED> By: Rodolfo Pitts MD, [facility] 05/29/20 1412 0735 0735 Rodolfo Pitts MD, [facility] /EPI
== END | disposition home or self-care (01) ==
LOC: CATH 06:23
PROVIDERS: ATTEND Internal Medicine
DX: I48.92 Unspecified atrial flutter (principal); I08.3 Combined rheumatic disorders of mitral, aortic and tricuspid valves; I70.0 Atherosclerosis of aorta; I11.0 Hypertensive heart disease with heart failure; I50.9 Heart failure, unspecified; I25.10 Atherosclerotic heart disease of native coronary artery without angina pectoris; E11.9 Type 2 diabetes mellitus without complications; I73.9 Peripheral vascular disease, unspecified; J44.9 Chronic obstructive pulmonary disease, unspecified; I25.2 Old myocardial infarction; M19.90 Unspecified osteoarthritis, unspecified site; K21.9 Gastro-esophageal reflux disease without esophagitis; Z98.890 Other specified postprocedural states; Z79.899 Other long term (current) drug therapy; Z86.73 Personal history of transient ischemic attack (TIA), and cerebral infarction without residual deficits; Z90.49 Acquired absence of other specified parts of digestive tract; Z79.4 Long term (current) use of insulin; Z86.711 Personal history of pulmonary embolism; Z79.01 Long term (current) use of anticoagulants; Z85.46 Personal history of malignant neoplasm of prostate; Z98.41 Cataract extraction status, right eye; Z87.891 Personal history of nicotine dependence

== ENCOUNTER → 2020-06-20 | Outpatient (CLI) | payer OTHER | LOC: SJCVC 13:51 | PROVIDERS: ATTEND Internal Medicine Cardiovascular Disease | DX: R94.31 Abnormal electrocardiogram [ECG] [EKG] (principal); I45.10 Unspecified right bundle-branch block; R00.1 Bradycardia, unspecified; I48.92 Unspecified atrial flutter; I11.9 Hypertensive heart disease without heart failure; I42.9 Cardiomyopathy, unspecified; I25.10 Atherosclerotic heart disease of native coronary artery without angina pectoris; E78.00 Pure hypercholesterolemia, unspecified; I65.23 Occlusion and stenosis of bilateral carotid arteries; I73.9 Peripheral vascular disease, unspecified; I71.4 Abdominal aortic aneurysm, without rupture; E11.9 Type 2 diabetes mellitus without complications; Z86.16 Personal history of COVID-19; G47.30 Sleep apnea, unspecified; Z90.49 Acquired absence of other specified parts of digestive tract; Z98.890 Other specified postprocedural states; Z88.8 Allergy status to other drugs, medicaments and biological substances; Z79.899 Other long term (current) drug therapy; Z86.73 Personal history of transient ischemic attack (TIA), and cerebral infarction without residual deficits; Z86.718 Personal history of other venous thrombosis and embolism; Z87.891 Personal history of nicotine dependence; Z82.49 Family history of ischemic heart disease and other diseases of the circulatory system ==

== ENCOUNTER → 2020-09-19 | Outpatient (CLI) | payer OTHER | LOC: SJCVCIMAG 07:31 | PROVIDERS: ATTEND Internal Medicine Cardiovascular Disease | DX: R94.31 Abnormal electrocardiogram [ECG] [EKG] (principal); I45.2 Bifascicular block; I25.10 Atherosclerotic heart disease of native coronary artery without angina pectoris; I42.9 Cardiomyopathy, unspecified; I65.23 Occlusion and stenosis of bilateral carotid arteries; I48.92 Unspecified atrial flutter; I10 Essential (primary) hypertension; E78.00 Pure hypercholesterolemia, unspecified; I73.9 Peripheral vascular disease, unspecified; E11.51 Type 2 diabetes mellitus with diabetic peripheral angiopathy without gangrene; K21.9 Gastro-esophageal reflux disease without esophagitis; Z86.718 Personal history of other venous thrombosis and embolism; Z86.16 Personal history of COVID-19; Z79.899 Other long term (current) drug therapy; Z87.891 Personal history of nicotine dependence; Z88.5 Allergy status to narcotic agent ==